=== PATIENT | male | born 1990 | race Caucasian/White ===

== ENCOUNTER 2017-07-20 10:39 | Emergency (ER) | payer MEDICAID ==
[~2017-07-20] VITALS: Ht 177.8 cm; Wt 79.0 kg
[2017-07-20 10:43] VITALS: Ht 177.8 cm; Wt 79.0 kg
[2017-07-20] MEDS ORDERED: ACETAMINOPHEN 500 MG TAB PO STA (11:37)
[2017-07-20] MEDS ORDERED: ONDANSETRON 4 MG INJ IV STA (11:37)
--- NOTE | 2017-07-20 11:42 | ERD ---
ER Documentation Chief Complaint Date/Time DATE: 07/20/17 TIME: 11:40 Chief Complaint pt bib family with c/o cough, fever, aches,vomiting feeling bad x 2 days HPI This is a 26-year-old male who presents the emergency department today with his aunt for complaints of feeling bad for the past 4 days. States he has had intermittent cough he has body aches, fever, nasal congestion and shortness of breath and 2 bouts of vomiting. States he has burning in his esophagus that goes upwards. denies any sick contacts. States he smokes cigarettes. Denies any diarrhea ROS All systems reviewed and are negative except as per history of present illness. Medications Home Meds Active Scripts Guaifenesin-Dextromethorphan* (Robitussin* DM) 100MG/10MG/5ML Syrup, 10 ML PO Q4H Y for COUGH for 7 Days, ML Prov:RYAN MORA PA-C 07/20/17 Ondansetron Hcl* (Zofran*) 4 Mg Tablet, 4 MG PO Q6H for NAUSEA AND/OR VOMITING, #30 TAB Prov:RYAN MORA PA-C 07/20/17 Omeprazole* (Omeprazole*) 20 Mg Capsule., 20 MG PO BID, #20 Prov:RYAN MORA PA-C 07/20/17 Electrolyte,Oral (Pedialyte) 1,000 Ml Solution, 100 ML PO Q6 Y for FEVER, #1000 ML Prov:RYAN MORA PA-C 07/20/17 Acetaminophen* (Tylophen*) 500 Mg Capsule, 1 CAP PO Q6H Y for PAIN AND OR ELEVATED TEMP, #30 CAP Prov:RYAN MORA PA-C 07/20/17 Ibuprofen* (Motrin*) 800 Mg Tab, 800 MG PO Q6, #30 TAB Prov:RYAN MORA PA-C 07/20/17 Allergies Allergies: Coded Allergies: No Known Allergy (Unverified , 07/20/17) Physical Exam Vitals Vital Signs Date Time Temp Pulse Resp B/P Pulse Ox O2 Delivery O2 Flow Rate FiO2 07/20/17 14:12 98.7 119 20 152/83 100 Room Air 07/20/17 10:43 100.2 139 20 163/92 100 Physical Exam Const: NAD Head: Atraumatic Eyes: Normal Conjunctiva ENT: TMs normal. Bilateral clear drainage. Throat mild erythema no exudate Neck: Full range of motion..~ No meningismus. Resp: Clear to auscultation bilaterally Cardio: Regular rate and rhythm, no murmurs Abd: Soft, mild epigastric tenderness non distended. Normal bowel sounds Skin: No petechiae or rashes Back: No midline or flank tenderness Ext: No cyanosis, or edema Neur: Awake and alert Psych: Normal Mood and Affect Results 24 hrs Current Medications Medications (Trade) Dose Ordered Sig/Rasheed Route PRN Reason Start Time Stop Time Status Last Admin Dose Admin Sodium Chloride (NS) 1,000 ml @ 1,000 mls/hr Q1H ONCE IV 07/20/17 12:00 07/20/17 12:59 DC 07/20/17 12:32 Ondansetron HCl (Zofran Inj) 4 mg ONCE STAT IV 07/20/17 11:37 07/20/17 11:40 DC 07/20/17 12:30 Acetaminophen (Tylenol Tab) 500 mg ONCE STAT PO 07/20/17 11:37 07/20/17 11:40 DC 07/20/17 12:29 Famotidine (Pepcid) 20 mg ONCE ONCE PO 07/20/17 12:00 07/20/17 12:01 DC 07/20/17 12:30 Miscellaneous Medication (Gi Cocktail (2)) 40 ml ONCE ONCE PO 07/20/17 13:30 07/20/17 13:31 DC 07/20/17 13:29 DIAGNOSTIC IMAGING REPORT Patient: ARIADNA DEWITT : 1990 Age: 26 Sex: M MR #: [id number] DOS: 07/20/17 0000 Ordering MD: RYAN MORA PA-C Location: [facility] Room/Bed: PROCEDURE: XR Chest PA CLINICAL INDICATION: Cough, short of breath, fever TECHNIQUE: An PA radiograph of the chest was submitted. COMPARISON: None. FINDINGS: Cardiovascular: The cardiovascular silhouette appears unremarkable. Lung Akbar: The lung akbar appear clear with no nodule, alveolar infiltrate, or interstitial prominence evident. Pleural Spaces: There is no pneumothorax or pleural fluid accumulation evident. Osseous Structures: The osseous structures appear intact. Soft Tissues: The soft tissues appear unremarkable. IMPRESSION: Unremarkable PA chest. Physician Godwin Date Time Electronically viewed and signed by Ary Ballesteros Physician on 07/20/2017 12:32 RH/ CC: RYAN MORA PA-C RUN DATE: 07/20/17 [facility] PAGE 1 RUN TIME: [id number] [place] [address] Deangelo Oshea M.D. Infusion Pharmacist VIRAJ#: [id number] Name: ARIADNA DEWITT Age/Sex: 26/M Attend Dr: MARTHA MAZA MD Acct: [id number] MR# : [id number] : 1990 Location: [facility] Admit: 07/20/17 Specimen: [id number] Status: Complete Jair: 07/20/17-1230 Rcvd: 07/20-1242 Source: MARTHA Jaffe Descrip: Procedure Result Microbiology INFLUENZA A & B BY EIA Final INFLU A&B BY EIA INFLUENZA A NEGATIVE (Ref Range Neg) INFLUENZA B NEGATIVE (Ref Range Neg) ................................................................................ ............ Flags: Critical Hi = *H Critical Lo = *L Microbiology Abnormal = * Abnormal Hi = H Abnormal Lo = L Blood Bank Abnormal = * Susceptability Flags: S = Sensitive R = Resistant I = Intermediate END OF REPORT Procedures/MDM This is a 26-year-old male who presents the emergency department today with multiple complaints. Patient had a low-grade temperature of 100.2 here in the emergency department he was tachycardic at 139. He was oxygen saturation 100% however patient was complaining of feeling shortness of breath and therefore I did obtain a chest x-ray as well as influenza swab. Chest x-ray is unremarkable. There is no pleural effusion or pneumothorax. There is no infiltrate. Low suspicion for pneumonia, PE, abscess, pleural effusion. Influenza A and B is negative Symptoms at this time is consistent with influenza-like symptoms. Low suspicion for sepsis, meningitis, pneumonia ,serious acute bacterial infection. Patient was counseled for greater than 3 minutes on smoking cessation. Prior to discharge I asked patient to follow-up with his primary care doctor and he then indicated that he had gone to his primary care doctor this morning was told to come here to the emergency department to get IV fluids. Patient was given IV fluids, Zofran, Pepcid, Tylenol, GI cocktail here in the emergency department and symptoms improved. Fever s improved to 98 and tachycardia decreased to 119. Patient reported that the burning in his esophagus had improved after the GI cocktail and he was asking if he can eat Brazilian food today when he got home. I counseled patient on proper diet for his symptoms. Patient was given a prescription for Tylenol, Motrin, Robitussin, Zofran, omeprazole At this time the patient is stable for discharge and outpatient management. Patient should follow up with their PCP in the next 1-2 days. They may return to the emergency department sooner for any persistent or worsening of symptoms. Patient understood and agreed with the plan. Departure Diagnosis: Primary Impression: Influenza-like symptoms Condition: RYAN Brizuela PA-C Jul 20, 2017 11:42
[2017-07-20] MEDS ORDERED: SOD CHLORIDE 0.9% 1,000 ML IV ONE (12:00)
[2017-07-20] MEDS ORDERED: FAMOTIDINE 20 MG TAB PO ONE (12:00)
--- NOTE | 2017-07-20 12:32 | RADRPT ---
PROCEDURE: XR Chest PA CLINICAL INDICATION: Cough, short of breath, fever TECHNIQUE: An PA radiograph of the chest was submitted. COMPARISON: None. FINDINGS: Cardiovascular: The cardiovascular silhouette appears unremarkable. Lung Garcia: The lung garcia appear clear with no nodule, alveolar infiltrate, or interstitial promi nence evident. Pleural Spaces: There is no pneumothorax or pleural fluid accumulation evident. Osseous Structures: The osseous structures appear intact. Soft Tissues: The soft tissues appear unremarkable. IMPRESSION: Unremarkable PA chest. Physician Godwin Date Time Electronically viewed and signed by Ary Ballesteros Physician on 07/20/2017 12:32 RH/
[2017-07-20] MEDS ORDERED: LIDOCAINE/MYLANTA 40 ML BTL PO ONE (13:30)
[2017-07-20 14:12] VITALS: BP 152/83; PULSE 119; RESP 20; TEMP 98.7
[2017-07-20] MEDS ORDERED: IBUP800T25 PO (14:23)
[2017-07-20] MEDS ORDERED: ACET500C5 PO (14:23)
[2017-07-20] MEDS ORDERED: ELEC100080 PO (14:23)
[2017-07-20] MEDS ORDERED: OMEP20CA16 PO (14:24)
[2017-07-20] MEDS ORDERED: ONDA4TAB8 PO (14:25)
[2017-07-20] MEDS ORDERED: UDROBDM PO (14:26)
== END 2017-07-20 14:39 | disposition home or self-care (01) ==
LOC: FTE 10:39
DX: R05 Cough (principal); R50.9 Fever, unspecified; R00.0 Tachycardia, unspecified; R06.02 Shortness of breath; R10.13 Epigastric pain; R11.10 Vomiting, unspecified
CPT/HCPCS: 71010; 87400; 96374; J2405; J7030; Z7502; Z7610

== ENCOUNTER 2017-07-21 08:02 | Inpatient (IN) | payer MEDICAID ==
[~2017-07-21] VITALS: Ht 177.8 cm; Wt 80.2 kg
[2017-07-21] VITALS (9 sets, daily range): BP systolic 117–152; BP diastolic 61–115; PULSE 94–113; RESP 17–26; TEMP 98.8; Ht 177.8 cm; Wt 80.2 kg
[~2017-07-21 08:02] MED LIST: ACET500C5 PO; ELEC100080 PO; IBUP800T25 PO; OMEP20CA16 PO; ONDA4TAB8 PO; UDROBDM PO
[2017-07-21] MEDS ORDERED: ONDANSETRON 4 MG INJ IV STA (08:41)
[2017-07-21] MEDS ORDERED: SOD CHLORIDE 0.9% 1,000 ML IV STA ×2 (08:41→10:14)
[2017-07-21 09:24] LABS: BASOPHIL # 0.1 10^3/ul (0.0-0.1); BASOPHILS % 0.7 % (0.0-2.0); EOSINOPHILS % 0.1 % (0.0-7.0); HEMATOCRIT 48.7 % (42.0-52.0); HEMOGLOBIN 16.5 g/dl (14.0-18.0); LYMPHOCYTES # 1.7 10^3/ul (0.8-2.9); LYMPHOCYTES % 15.1 % (15.0-51.0); MEAN CORPUSCULAR HEMOGLOBIN 29.6 pg (29.0-33.0); MEAN CORPUSCULAR HGB CONC 33.9 g/dl (32.0-37.0); MEAN CORPUSCULAR VOLUME 87.3 fl (82.0-101.0); MEAN PLATELET VOLUME 9.7 fl (7.4-10.4); MONOCYTE # 1.1 10^3/ul (0.3-0.9); MONOCYTES % 9.7 % (0.0-11.0); NEUTROPHILS % 71.9 % (39.0-77.0); PLATELET COUNT 237 10^3/UL (140-415); RED BLOOD COUNT 5.58 10^6/ul (4.70-6.10); RED CELL DISTRIBUTION WIDTH 12.9 % (11.5-14.5); WHITE BLOOD COUNT 11.2 10^3/ul (4.8-10.8)
[2017-07-21 09:30] LABS: ADD UMIC YES; UR ASCORBIC ACID NEGATIVE (NEGATIVE); UR BILIRUBIN (Dip) NEGATIVE (NEGATIVE); UR BLOOD (Dip) 1+ mg/dL (NEGATIVE); UR CLARITY CLEAR (CLEAR); UR COLOR STRAW (YELLOW); UR GLUCOSE (Dip) 3+ mg/dL (NEGATIVE); UR KETONES (Dip) 2+ mg/dL (NEGATIVE); UR LEUKOCYTE ESTERASE (Dip) NEGATIVE Leu/ul (NEGATIVE); UR MUCUS FEW /HPF (NONE SEEN); UR NITRITE (Dip) NEGATIVE (NEGATIVE); UR RBC 2 /HPF (0-5); UR TOTAL PROTEIN (Dip) 2+ mg/dl (NEGATIVE); UR UROBILINOGEN (Dip) NEGATIVE (NEGATIVE)
--- NOTE | 2017-07-21 09:34 | ERA ---
ER Documentation Chief Complaint Date/Time DATE: 07/21/17 TIME: 09:32 Chief Complaint seen here yesterday, dx flu, today vomiting x 3 HPI 26-year-old male returning to the emergency department with a chief complaint of nausea, vomiting, general malaise. Also complains of diminishing cough over the past couple days. Moderate upper abdominal pain 3 days. Patient states that the cough is mild. States that he feels dehydrated. Denies headache, meningismus, diarrhea, constipation, dysuria, recreational drug use, alcohol abuse, similar symptoms in past. No previous surgical history. Patient has no other complaints and describes no other associated manifestations. ROS All systems reviewed and are negative except as per history of present illness. Medications Home Meds Active Scripts Guaifenesin-Dextromethorphan* (Robitussin* DM) 100MG/10MG/5ML Syrup, 10 ML PO Q4H Y for COUGH for 7 Days, ML Prov:RYAN MORA PA-C 07/20/17 Ondansetron Hcl* (Zofran*) 4 Mg Tablet, 4 MG PO Q6H for NAUSEA AND/OR VOMITING, #30 TAB Prov:RYAN MORA PA-C 07/20/17 Omeprazole* (Omeprazole*) 20 Mg Capsule.dr, 20 MG PO BID, #20 Prov:RYAN MORA PA-C 07/20/17 Electrolyte,Oral (Pedialyte) 1,000 Ml Solution, 100 ML PO Q6 Y for FEVER, #1000 ML Prov:RYAN MORA PA-C 07/20/17 Acetaminophen* (Tylophen*) 500 Mg Capsule, 1 CAP PO Q6H Y for PAIN AND OR ELEVATED TEMP, #30 CAP Prov:RYAN MORA PA-C 07/20/17 Ibuprofen* (Motrin*) 800 Mg Tab, 800 MG PO Q6, #30 TAB Prov:RYAN MORA PA-C 07/20/17 Allergies Allergies: Coded Allergies: No Known Allergy (Unverified , 07/21/17) PMhx/Soc Medical and Surgical Hx: pt denies Medical Hx, pt denies Surgical Hx History of Surgery: No Anesthesia Reaction: No Hx Neurological Disorder: No Hx Respiratory Disorders: No Hx Cardiac Disorders: No Hx Psychiatric Problems: No Hx Miscellaneous Medical Probl: No Hx Alcohol Use: No Hx Substance Use: No Hx Tobacco Use: No Smoking Status: Never smoker Physical Exam Vitals Vital Signs Date Time Temp Pulse Resp B/P Pulse Ox O2 Delivery O2 Flow Rate FiO2 07/21/17 08:09 98.8 118 20 137/83 99 Physical Exam Const: [] Head: Atraumatic Eyes: Normal Conjunctiva ENT: Normal External Ears, Nose and Mouth. Neck: Full range of motion..~ No meningismus. Resp: Clear to auscultation bilaterally Cardio: Regular rate and rhythm, no murmurs Abd: Soft. No guarding. Mild to moderate tenderness of the epigastric region. Negative Elkins sign. No McBurney's point tenderness. Negative psoas , and obturator signs. No rebound tenderness. Skin: No petechiae or rashes Back: No midline or flank tenderness Ext: No cyanosis, or edema Neur: Awake and alert Psych: Normal Mood and Affect Result Diagram: 07/21/17 0900 07/21/17 0900 Results 24 hrs Laboratory Tests Test 07/21/17 09:00 White Blood Count 11.210^3/ul Red Blood Count 5.5810^6/ul Hemoglobin 16.5g/dl Hematocrit 48.7% Mean Corpuscular Volume 87.3fl Mean Corpuscular Hemoglobin 29.6pg Mean Corpuscular Hemoglobin Concent 33.9g/dl Red Cell Distribution Width 12.9% Platelet Count 36398^3/UL Mean Platelet Volume 9.7fl Neutrophils % 71.9% Lymphocytes % 15.1% Monocytes % 9.7% Eosinophils % 0.1% Basophils % 0.7% Nucleated Red Blood Cells % 0.0/100WBC Neutrophils # 8.010^3/ul Lymphocytes # 1.710^3/ul Monocytes # 1.110^3/ul Eosinophils # 0.010^3/ul Basophils # 0.110^3/ul Nucleated Red Blood Cells # 0.010^3/ul Urine Color STRAW Urine Clarity CLEAR Urine pH 5.0 Urine Specific [place] 1.020 Urine Ketones 2+mg/dL Urine Nitrite NEGATIVEmg/dL Urine Bilirubin NEGATIVEmg/dL Urine Urobilinogen NEGATIVEmg/dL Urine Leukocyte Esterase NEGATIVELeu/ul Urine Microscopic RBC 2/HPF Urine Microscopic WBC 1/HPF Urine Mucus FEW/HPF Urine Hemoglobin 1+mg/dL Urine Glucose 3+mg/dL Urine Total Protein 2+mg/dl Sodium Level 134mmol/L Potassium Level 3.6mmol/L Chloride Level 105mmol/L Carbon Dioxide Level 7mmol/L Anion Gap 26 Blood Urea Nitrogen 11mg/dl Creatinine 0.96mg/dl Glucose Level 324mg/dl Calcium Level 9.2mg/dl Total Bilirubin 0.2mg/dl Direct Bilirubin 0.00mg/dl Indirect Bilirubin 0.2mg/dl Aspartate Amino Transf (AST/SGOT) 18IU/L Alanine Aminotransferase (ALT/SGPT) 34IU/L Alkaline Phosphatase 155IU/L Total Protein 8.2g/dl Albumin 4.5g/dl Globulin 3.70g/dl Albumin/Globulin Ratio 1.21 Lipase 4790U/L Current Medications Medications (Trade) Dose Ordered Sig/Rasheed Route PRN Reason Start Time Stop Time Status Last Admin Dose Admin Sodium Chloride (NS) 1,000 ml @ 1,000 mls/hr Q1H STAT IV 07/21/17 08:41 07/21/17 09:40 DC 07/21/17 09:14 Ondansetron HCl (Zofran Inj) 4 mg ONCE STAT IV 07/21/17 08:41 07/21/17 08:43 DC 07/21/17 09:14 OLIVERIO PALACIOS PA-C Jul 21, 2017 09:34
[2017-07-21 09:48] LABS: ALBUMIN 4.5 g/dl (3.3-4.9); ALBUMIN/GLOBULIN RATIO 1.21; BILIRUBIN,INDIRECT 0.2 mg/dl (0-1.1); BILIRUBIN,TOTAL 0.2 mg/dl (0.2-1.3); CALCIUM 9.2 mg/dl (8.4-10.2); CREATININE 0.96 mg/dl (0.61-1.24); POTASSIUM 3.6 mmol/L (3.5-5.1); TOTAL PROTEIN 8.2 g/dl (6.1-8.1)
[2017-07-21] MEDS ORDERED: INSULIN HUMAN REGULAR 100 UNIT in SOD CHLORIDE 0.9% 99 ML IV STA (10:14)
[2017-07-21 10:48] LABS: AADO2 Arterial 7.7 mmHg (7.0-24.0); Allen Test ACCEPTAB; Arterial Base Excess -24.7 mmol/L (-3.0-3); Arterial COHb 0.3 % (0.0-3.0); Arterial Fraction of Oxyhgb 97.6 % (93.0-99.0); Arterial HCO3 3.9 mmol/L (22.0-26.0); Arterial MetHb 0.3 % (0.0-1.5); Arterial Total Hemglobin 16.5 g/dl (12.0-18.0); MODE ROOM AIR
[2017-07-21 14:01] LABS: INR 1.14; MAGNESIUM 2.6 mg/dl (1.7-2.5); PARTIAL THROMBOPLASTIN TIME 26.1 Sec (25.0-35.0); PHOSPHORUS 1.6 mg/dl (2.5-4.9); PROTIME 14.6 Sec (12.2-14.2); PT RATIO 1.1
[2017-07-21] MEDS ORDERED: SOD CHLORIDE 0.9% 1,000 ML IV SCH ×2 (14:05)
[2017-07-21] MEDS ORDERED: INSULIN HUMAN REGULAR 100 UNIT in SOD CHLORIDE 0.9% 99 ML IV SCH (14:30)
[2017-07-21] MEDS ORDERED: NACL 0.9% 3 ML SYG IV SCH (14:30)
[2017-07-21] MEDS ORDERED: DEXTROSE 50% 50 ML SYRINGE IV PRN ×2 (14:30)
[2017-07-21] MEDS ORDERED: LORAZEPAM 2 MG INJ IV PRN (14:30)
[2017-07-21] MEDS ORDERED: HYDROCODONE/APAP (5/325) TAB PO PRN (14:30)
[2017-07-21] MEDS ORDERED: GUAIFENESIN/DM 5ML CUP PO PRN (14:30)
[2017-07-21] MEDS ORDERED: morphine 2 MG INJ IV PRN (14:30)
[2017-07-21] MEDS ORDERED: NA PHOSPHATE/BIPHOS 133 ML ENEMA PR PRN (14:30)
[2017-07-21] MEDS ORDERED: ALBUTEROL/IPRATROPIUM (NEB) 3 ML AMP HHN PRN (14:30)
[2017-07-21] MEDS ORDERED: ACETAMINOPHEN 325 MG TAB PO PRN (14:30)
[2017-07-21] MEDS ORDERED: NITROGLYCERIN (SL) 0.4 MG TAB SL PRN (14:30)
[2017-07-21] MEDS ORDERED: hydrALAzine 20 MG INJ IV PRN (14:30)
[2017-07-21] MEDS ORDERED: LACTATED RINGER'S 1,000 ML IV SCH (15:05)
[2017-07-21 15:15] LABS: CALCIUM 8.5 mg/dl (8.4-10.2); CREATININE 0.9 mg/dl (0.61-1.24); POTASSIUM 3.2 mmol/L (3.5-5.1)
[2017-07-21] MEDS ORDERED: POTASSIUM CHLORIDE 10 MEQ in SOD CHLORIDE 0.9% 1,000 ML IV SCH (16:05)
[2017-07-21] MEDS: ACCU-CHEK XX SCH ×8 (16:25→23:33)
[2017-07-21] MEDS ORDERED: PANTOPRAZOLE (EC) 40 MG TAB PO ONE (17:00)
[2017-07-21] MEDS: ONDANSETRON 4 MG INJ IV PRN (17:02)
[2017-07-21 17:31] LABS: CALCIUM 8.4 mg/dl (8.4-10.2); CREATININE 0.84 mg/dl (0.61-1.24); POTASSIUM 3.3 mmol/L (3.5-5.1)
[2017-07-21] MEDS ORDERED: POTASSIUM PHOSPHATE 40 MEQ in SOD CHLORIDE 0.9% 250 ML IVPB ONE (18:00)
--- NOTE | 2017-07-21 19:39 | HP ---
DATE OF ADMISSION: 07/21/2017 CHIEF COMPLAINT: Abdominal pain, nausea, vomiting. HISTORY OF PRESENT ILLNESS: A 26-year-old male with no significant past medical history who presents with abdominal pain, nausea, vomiting, symptoms have been going on for the last few days. He has also been having increased urinary frequency and generalized weakness as well. His vomiting is nonbilious, nonbloody, also abdominal pain as well. He has also had a dry cough as well, also has subjective fevers but denies chills. No diarrhea or constipation. No arthralgias or myalgias. When he came in today, he was found with elevated blood sugars in the 3- 400 range along with an elevated anion gap of 26, signs of DKA and was started on fluids and insulin in the ER. Patient denies any prior history of diabetes, says he has never had these symptoms before. PAST MEDICAL HISTORY: As above. ALLERGIES: NO KNOWN DRUG ALLERGIES. HOME MEDICATIONS: None. PAST SURGICAL HISTORY: He had wrist surgery in the past. FAMILY HISTORY: Mother had diabetes. Father had heart problems and alcohol abuse. SOCIAL HISTORY: He smokes 9-10 cigarettes per day for the last six years. PHYSICAL EXAMINATION: VITAL SIGNS: T-max 98.8, pulse 109-119, respirations 19-24, blood pressure is 134/83, satting at 100% room air. GENERAL: Patient is lying in bed, appears lethargic but answers questions appropriately, in mild distress. HEENT: Pupils equal, round, react to light. Extraocular muscles intact. NECK: Supple. No thyromegaly. LUNGS: Clear to auscultation bilaterally. CARDIOVASCULAR: S1, S2 heard. No rubs or gallops. ABDOMEN: Soft, nontender, nondistended. Normal bowel sounds. No rebound or guarding. MUSCULOSKELETAL: No lower extremity bilaterally. NEUROLOGIC: No focal deficits. LABS: WBC 11.2, hemoglobin 16.5, hematocrit 48.7, platelets of 237,000. Initial sodium was 134, potassium 3.6, chloride 105, CO2 7, anion gap 26, BUN 11, creatinine 0.96, glucose 324. His A1c is 11, phosphorus 1.6, mag is 2.6, LFTs are essentially normal except his alk phos is 155, total protein is 8.2, amylase was 553, lipase is 4790, and his UA showed 2+ ketones. Chest x- ray showed unremarkable. DISCUSSION AND DECISION-MAKING: A 26-year-old male coming with abdominal pain, nausea, vomiting, and increased urinary frequency, symptoms and signs of diabetic ketoacidosis, also with signs of pancreatitis. 1. Diabetic ketoacidosis. Admit the patient to intensive care unit, aggressive IV fluid hydration, aggressive IV insulin management. Follow diabetic ketoacidosis protocol. Replete the electrolytes as well. A1c is 11. Will get tobacco prevention health educator as well. Consider endocrinology consult as well. 2. Pancreatitis, unclear source, lipase was 4700 on admission. Keep the patient n.p.o. for now, recheck lipase in the morning. Antiemetic medications and pain control medications as well. 3. Gastroenterology prophylaxis. Proton pump inhibitor. 4. Deep venous thrombosis prophylaxis. Heparin subcutaneously. Dictated By: Jono Vieira MD /javi/zac /Document#: [id number]
[2017-07-21] MEDS: D5W-0.45 NACL + KCL 40 MEQ 1,000 ML IV SCH (20:02)
[2017-07-21] MEDS: HEPARIN 5,000 UNIT/0.5 ML VIAL SC SCH (21:26)
[2017-07-21 23:54] LABS: CALCIUM 8.5 mg/dl (8.4-10.2); CREATININE 0.8 mg/dl (0.61-1.24)
[2017-07-22] VITALS (20 sets, daily range): BP systolic 112–141; BP diastolic 58–92; PULSE 84–106; RESP 14–23
[2017-07-22] MEDS: ACCU-CHEK XX SCH ×9 (00:36→08:41)
[2017-07-22] MEDS: ONDANSETRON 4 MG INJ IV PRN (04:13)
[2017-07-22] MEDS: D5W-0.45 NACL + KCL 40 MEQ 1,000 ML IV SCH (04:16)
[2017-07-22] MEDS: POTASSIUM CHLORIDE 50 ML IVPB PRN ×4 (04:29→07:30)
[2017-07-22] MEDS: PANTOPRAZOLE (EC) 40 MG TAB PO SCH (05:17)
[2017-07-22 05:26] LABS: BASOPHILS % 0.3 % (0.0-2.0); EOSINOPHILS # 0.1 10^3/ul (0.0-0.5); EOSINOPHILS % 1.5 % (0.0-7.0); HEMATOCRIT 40.4 % (42.0-52.0); HEMOGLOBIN 14.4 g/dl (14.0-18.0); LYMPHOCYTES # 1.2 10^3/ul (0.8-2.9); LYMPHOCYTES % 19.9 % (15.0-51.0); MEAN CORPUSCULAR HEMOGLOBIN 30.4 pg (29.0-33.0); MEAN CORPUSCULAR HGB CONC 35.6 g/dl (32.0-37.0); MEAN CORPUSCULAR VOLUME 85.2 fl (82.0-101.0); MEAN PLATELET VOLUME 9.8 fl (7.4-10.4); MONOCYTE # 0.9 10^3/ul (0.3-0.9); MONOCYTES % 13.9 % (0.0-11.0); NEUTROPHIL # 3.9 10^3/ul (1.6-7.5); NEUTROPHILS % 63.3 % (39.0-77.0); PLATELET COUNT 162 10^3/UL (140-415); RED BLOOD COUNT 4.74 10^6/ul (4.70-6.10); RED CELL DISTRIBUTION WIDTH 12.6 % (11.5-14.5); WHITE BLOOD COUNT 6.2 10^3/ul (4.8-10.8)
[2017-07-22 05:45] LABS: CALCIUM 8.5 mg/dl (8.4-10.2); CREATININE 0.73 mg/dl (0.61-1.24); PHOSPHORUS 0.9 mg/dl (2.5-4.9)
[2017-07-22] MEDS ORDERED: SOD CHLORIDE IVPB ONE (06:00)
[2017-07-22] MEDS ORDERED: POTASSIUM PHOSPHATE IVPB ONE (06:00)
[2017-07-22 06:14] LABS: CHOL/HDL RATIO 4.2 RATIO
[2017-07-22 06:46] LABS: THYROID STIMULATING HORMONE 0.796 MIU/L (0.465-4.680)
--- NOTE | 2017-07-22 07:49 | ERA ---
ER Documentation Chief Complaint Date/Time DATE: 07/22/17 TIME: 07:34 Chief Complaint seen here yesterday, dx flu, today vomiting x 3 HPI This is a very pleasant 26-year-old previously healthy male that presents to the emergency department complaining of generalized myalgias nausea and increased tiredness over the past 7 days. The patient indicates that over the past 3 days his symptoms have significantly worsened where he has had multiple episodes of nonbloody nonbilious emesis throughout the day. He has had no diarrhea or constipation. He complains of abdominal cramping but more prominent in the epigastric region. He states he went to the emergency department yesterday and diagnosed with an upper respiratory infection. He also indicates he had a nonproductive cough. The patient states he has had polyuria and polydipsia. He denies a headache or changes in vision. He denies any neck pain. He denies any history of alcohol abuse ROS All systems reviewed and are negative except as per history of present illness. Medications Home Meds Discontinued Scripts Guaifenesin-Dextromethorphan* (Robitussin* DM) 100MG/10MG/5ML Syrup, 10 ML PO Q4H Y for COUGH for 7 Days, ML Prov:RYAN MORA PA-C 07/20/17 Ondansetron Hcl* (Zofran*) 4 Mg Tablet, 4 MG PO Q6H for NAUSEA AND/OR VOMITING, #30 TAB Prov:RYAN MORA PA-C 07/20/17 Omeprazole* (Omeprazole*) 20 Mg Capsule., 20 MG PO BID, #20 Prov:RYAN MORA PA-C 07/20/17 Electrolyte,Oral (Pedialyte) 1,000 Ml Solution, 100 ML PO Q6 Y for FEVER, #1000 ML Prov:RYAN MORA PA-C 07/20/17 Acetaminophen* (Tylophen*) 500 Mg Capsule, 1 CAP PO Q6H Y for PAIN AND OR ELEVATED TEMP, #30 CAP Prov:RYAN MOAR PA-C 07/20/17 Ibuprofen* (Motrin*) 800 Mg Tab, 800 MG PO Q6, #30 TAB Prov:RYAN MORA PA-C 07/20/17 Allergies Allergies: Coded Allergies: No Known Allergy (Unverified , 07/21/17) PMhx/Soc Medical and Surgical Hx: pt denies Medical Hx, pt denies Surgical Hx Anesthesia Reaction: No Hx Neurological Disorder: No Hx Respiratory Disorders: No Hx Cardiac Disorders: No Hx Psychiatric Problems: No Hx Miscellaneous Medical Probl: No Hx Alcohol Use: Yes (2-3 TIMES/WEEK ~2 CUPS HENNESEY) Hx Substance Use: No Hx Tobacco Use: Yes Smoking Status: Current every day smoker Physical Exam Vitals Vital Signs Date Time Temp Pulse Resp B/P Pulse Ox O2 Delivery O2 Flow Rate FiO2 07/21/17 08:09 98.8 118 20 137/83 99 Physical Exam Constitutional:Well-developed. Drowsy but easily arousable. HEENT:Normocephalic. Atraumatic.Pupils were equal round reactive to light. Very dry mucous membranes.No tonsillar exudates. Neck: No nuchal rigidity. No lymphadenopathy. No posterior cervical spine tenderness or step-offs. Respiratory: [place] respirations with tachypnea but not using accessory muscles of respiration.Lungs were clear to auscultation bilaterally. No rhonchi. No rales. No wheezing. Odor of ketones on breath Cardiovascular: Regular rate regular rhythm.No murmurs. No rubs were appreciated.S1, S2 normal. Distal pulses are palpable 2+ bilaterally. GI: Abdomen was soft. Fuse abdominal tenderness. Non Distended. No pulsatile abdominal masses or bruits. No rebound. No guarding. Bowel sounds were present and normal. Muscle skeletal: Full range of motion of both the upper and lower extremities bilaterally.Normal muscle tone.No assymetrical calf tenderness or swelling. Skin: No petechia, no purpura. No lesions on the palms or the soles of the feet. No maculopapular rash. NEURO: Patient was alert, awake, orientated x3.No facial droop. Gait observed and normal with no ataxia. Result Diagram: 07/22/17 0505 07/22/17 0506 Results 24 hrs Laboratory Tests Test 07/21/17 09:00 07/21/17 10:14 07/21/17 11:55 White Blood Count 11.210^3/ul Red Blood Count 5.5810^6/ul Hemoglobin 16.5g/dl Hematocrit 48.7% Mean Corpuscular Volume 87.3fl Mean Corpuscular Hemoglobin 29.6pg Mean Corpuscular Hemoglobin Concent 33.9g/dl Red Cell Distribution Width 12.9% Platelet Count 35720^3/UL Mean Platelet Volume 9.7fl Neutrophils % 71.9% Lymphocytes % 15.1% Monocytes % 9.7% Eosinophils % 0.1% Basophils % 0.7% Nucleated Red Blood Cells % 0.0/100WBC Neutrophils # 8.010^3/ul Lymphocytes # 1.710^3/ul Monocytes # 1.110^3/ul Eosinophils # 0.010^3/ul Basophils # 0.110^3/ul Nucleated Red Blood Cells # 0.010^3/ul Urine Color STRAW Urine Clarity CLEAR Urine pH 5.0 Urine Specific [place] 1.020 Urine Ketones 2+mg/dL Urine Nitrite NEGATIVEmg/dL Urine Bilirubin NEGATIVEmg/dL Urine Urobilinogen NEGATIVEmg/dL Urine Leukocyte Esterase NEGATIVELeu/ul Urine Microscopic RBC 2/HPF Urine Microscopic WBC 1/HPF Urine Mucus FEW/HPF Urine Hemoglobin 1+mg/dL Urine Glucose 3+mg/dL Urine Total Protein 2+mg/dl Sodium Level 134mmol/L Potassium Level 3.6mmol/L Chloride Level 105mmol/L Carbon Dioxide Level 7mmol/L Anion Gap 26 Blood Urea Nitrogen 11mg/dl Creatinine 0.96mg/dl Glucose Level 324mg/dl Calcium Level 9.2mg/dl Total Bilirubin 0.2mg/dl Direct Bilirubin 0.00mg/dl Indirect Bilirubin 0.2mg/dl Aspartate Amino Transf (AST/SGOT) 18IU/L Alanine Aminotransferase (ALT/SGPT) 34IU/L Alkaline Phosphatase 155IU/L Total Protein 8.2g/dl Albumin 4.5g/dl Globulin 3.70g/dl Albumin/Globulin Ratio 1.21 Lipase 4790U/L Blood Gas Specimen Source Blood arterial Arterial Blood Date Drawn 07/21/2017 10:40:59 AM Arterial Blood pH (Temp corrected) 7.042 Arterial Blood pCO2 (Temp correct) 14.6mmhg Arterial Blood pO2 (Temp corrected) 124.5mmHG Arterial Blood HCO3 3.9mmol/L Arterial Blood Base Excess -24.7mmol/L Arterial Blood Oxygen Saturation 98.2mmHG Jey Test ACCEPTAB Arterial Blood Gas Puncture Site Right Radial Arterial Blood Carboxyhemoglobin 0.3% Arterial Blood Methemoglobin 0.3% Blood Gas A-a O2 Differential 7.7mmHg Oxyhemoglobin Percent 97.6% Total Hemoglobin 16.5g/dl Blood Gas Temperature 37.0C Blood Gas Modality ROOM AIR FiO2 21.0% Blood Gas Critical Value Read Back DR PIERRE Blood Gas Notified Whom JLD Blood Gas Notified Time 07/21/2017 10:48:43 AM Bedside Glucose 303mg/dL Current Medications Medications (Trade) Dose Ordered Sig/Rasheed Route PRN Reason Start Time Stop Time Status Last Admin Dose Admin Sodium Chloride (NS) 1,000 ml @ 1,000 mls/hr Q1H STAT IV 07/21/17 08:41 07/21/17 09:40 DC 07/21/17 09:14 Ondansetron HCl 4 mg 4 mg ONCE STAT IV 07/21/17 08:41 07/21/17 08:43 DC 07/21/17 09:14 Sodium Chloride 1,000 ml @ 1,000 mls/hr Q1H STAT IV 07/21/17 10:14 07/21/17 11:13 DC 07/21/17 11:47 Insulin Human Regular/Sodium Chloride (Novolin-R/NS) 100 ml @ 0 mls/hr TITRATE STAT IV 07/21/17 10:14 07/21/17 10:20 DC 07/21/17 11:58 Procedures/MDM This patient presented to the emergency department with generalized myalgias and physical exam findings suggestive of severe dehydration. At this time IV access was established by nursing staff and ancillary laboratory work was obtained. The patient received a fluid bolus. The patient presented to the emergency department with severe electrolyte abnormalities. The patient had an anion gap acidosis and my differential diagnosis included but was not limited to alcoholic ketoacidosis, carbon monoxide, aspirin toxicity, methanol toxicity, diabetic ketoacidosis, lactic acidosis, iron toxicity, starvation and sepsis. Given the patient's symptoms with diagnostic criteria of acidosis with a pH of 7.042 with ketonemia, low serum bicarbonate of 3.9 and elevated glucose of 340, I did feel the patient's symptoms were likely result of new onset diabetic ketoacidosis. The patient had ketonuria and serum ketones are currently pending at this time. In order to correct the anion gap the patient was started on an insulin drip after receiving fluid boluses to restore intravascular volume. The patient had no fluctuation in his mental status severe headache or elevated serum osmolarity which was calculated at 289 in the normal range being between 285 and 300 mOsm per liter. Patient will be admitted to the ICU in serious condition under the care of the hospitalists for resolution of the patient's anion gap acidosis. Patient lipase was also elevated which was concerning for acute pancreatitis and therefore the patient was made n.p.o. the patient had very minimal abdominal tenderness and I did not feel the patient had complications of a pancreatic pseudocyst or abscess and therefore at this time I did not obtain a CT scan of the abdomen. The patient had no cardiac instability and therefore bicarbonate was not given due to the complications which include hypokalemia, alkalosis, cerebral acidosis and edema. Critical Care: Time: 65 minutes Treatments/Evaluations: Close monitoring and treatment of unstable vital signs, cardiorespiratory, and neurologic status, while maintaining tight balance of fluid, respiratory, and cardiac interventions. Time does not include performing any of the above billable procedures. Departure Diagnosis: Primary Impression: Diabetic ketoacidosis Qualified Code: E13.10 - Diabetic ketoacidosis without coma associated with other specified diabetes mellitus Additional Impression: Acute pancreatitis Qualified Code: K85.90 - Acute pancreatitis without infection or necrosis, unspecified pancreatitis type Condition: Serious TIMO GRAMAJO Jul 22, 2017 07:48 Qualified Code: K85.90 - Acute pancreatitis without infection or necrosis, unspecified pancreatitis type Condition: Serious TIMO GRAMAJO Jul 22, 2017 07:48
[2017-07-22] MEDS: HEPARIN 5,000 UNIT/0.5 ML VIAL SC SCH (08:11)
[2017-07-22] MEDS ORDERED: SOD CHLORIDE 0.9% 1,000 ML IV SCH (09:30)
--- NOTE | 2017-07-22 09:43 | PN ---
Date/Time of Note Date/Time of Note DATE: 07/22/17 TIME: 09:38 Assessment/Plan VTE Prophylaxis VTE Prophylaxis Intervention: heparin Lines/Catheters IV [facility]from [facility] Peripheral IV Urinary Cath still in place: No Assessment/Plan Chief Complaint/Hosp Course Assessment and plan: A 26-year-old male coming with abdominal pain, nausea, vomiting, and increased urinary frequency, symptoms and signs of diabetic ketoacidosis, also with signs of pancreatitis. 1. Diabetic ketoacidosis -gap has closed now. - Continue aggressive IV fluid hydration, will switch to subcu insulin follow diabetic ketoacidosis protocol. - Replete the electrolytes as well. A1c is 11. -Aloe up endocrinology and radiagraph operator recommendations as well. 2. Pancreatitis - unclear source, lipase was 4700 on admission, down to 2300 yesterday evening. Keep the patient n.p.o. for now, but recheck lipase now. Antiemetic medications and pain control medications as well. 3. Gastroenterology prophylaxis. Proton pump inhibitor. 4. Deep venous thrombosis prophylaxis. Heparin subcutaneously. Critical care time spent on patient care today equals 50 minutes. Problems: Subjective 24 Hr Interval Summary Free Text/Dictation No acute events overnight. About to be taken off insulin drip. Exam/Review of Systems Vital Signs Vitals Vital Signs Date Time Temp Pulse Resp B/P Pulse Ox O2 Delivery O2 Flow Rate FiO2 07/22/17 06:00 92 15 117/79 99 Room Air 07/22/17 04:00 98.4 Intake and Output 07/21/17 07/21/17 07/22/17 15:00 23:00 07:00 Intake Total 1685.319 ml 998 ml Output Total 2300 ml 800 ml Balance -614.681 ml 198 ml Exam GENERAL: Lying in bed, answers questions appropriately HEENT: Pupils equal, round, react to light. Extraocular muscles intact. NECK: Supple. No thyromegaly. LUNGS: Clear to auscultation bilaterally. CARDIOVASCULAR: S1, S2 heard. No rubs or gallops. ABDOMEN: Soft, nontender, nondistended. Normal bowel sounds. No rebound or guarding. MUSCULOSKELETAL: No lower extremity bilaterally. NEUROLOGIC: No focal deficits. Results Result Diagram: 07/22/17 0505 07/22/17 0506 Results 24 hrs Laboratory Tests Test 07/21/17 10:14 07/21/17 11:55 07/21/17 13:20 07/21/17 13:30 Blood Gas Specimen Source Blood arterial Arterial Blood Date Drawn 07/21/2017 10:40:59 AM Arterial Blood pH (Temp corrected) 7.042 *L Arterial Blood pCO2 (Temp correct) 14.6 L Arterial Blood pO2 (Temp corrected) 124.5 H Arterial Blood HCO3 3.9 *L Arterial Blood Base Excess -24.7 L Arterial Blood Oxygen Saturation 98.2 H Jey Test ACCEPTAB Arterial Blood Gas Puncture Site Right Radial Arterial Blood Carboxyhemoglobin 0.3 Arterial Blood Methemoglobin 0.3 Blood Gas A-a O2 Differential 7.7 Oxyhemoglobin Percent 97.6 Total Hemoglobin 16.5 Blood Gas Temperature 37.0 Blood Gas Modality ROOM AIR FiO2 21.0 Blood Gas Critical Value Read Back DR PIERRE Blood Gas Notified Whom ANNETTAD Blood Gas Notified Time 07/21/2017 10:48:43 AM Bedside Glucose 303 H 220 Prothrombin Time 14.6 H Prothrombin Time Ratio 1.1 INR International Normalized Ratio 1.14 Activated Partial Thromboplast Time 26.1 Sodium Level 137 Potassium Level 3.2 L Chloride Level 112 H Carbon Dioxide Level 7 *L Anion Gap 21 H Blood Urea Nitrogen 10 Creatinine 0.90 Glucose Level 222 #H Hemoglobin A1c 11.0 H Calcium Level 8.5 Phosphorus Level 1.6 L Magnesium Level 2.6 H Amylase Level 553 H Free Thyroxine 1.01 Test 07/21/17 13:56 07/21/17 14:59 07/21/17 16:03 07/21/17 16:26 Bedside Glucose 188 167 148 132 Test 07/21/17 16:43 07/21/17 16:45 07/21/17 17:23 07/21/17 18:08 Sodium Level 138 Potassium Level 3.3 L Chloride Level 114 H Carbon Dioxide Level 10 L Anion Gap 17 H Blood Urea Nitrogen 10 Creatinine 0.84 Glucose Level 131 # Calcium Level 8.4 Lipase 2362 H Bedside Glucose 119 111 Test 07/21/17 19:24 07/21/17 20:29 07/21/17 21:21 07/21/17 22:34 Bedside Glucose 119 134 112 140 Test 07/21/17 23:15 07/21/17 23:30 07/22/17 00:35 07/22/17 01:36 Sodium Level 137 Potassium Level 3.0 L Chloride Level 115 H Carbon Dioxide Level 13 L Anion Gap 12 Blood Urea Nitrogen 8 Creatinine 0.80 Glucose Level 105 Calcium Level 8.5 Bedside Glucose 103 106 99 Test 07/22/17 02:35 07/22/17 03:26 07/22/17 04:20 07/22/17 05:05 Bedside Glucose 109 137 128 White Blood Count 6.2 # Red Blood Count 4.74 Hemoglobin 14.4 Hematocrit 40.4 L Mean Corpuscular Volume 85.2 Mean Corpuscular Hemoglobin 30.4 Mean Corpuscular Hemoglobin Concent 35.6 Red Cell Distribution Width 12.6 Platelet Count 162 # Mean Platelet Volume 9.8 Neutrophils % 63.3 Lymphocytes % 19.9 Monocytes % 13.9 H Eosinophils % 1.5 Basophils % 0.3 Nucleated Red Blood Cells % 0.0 Neutrophils # 3.9 Lymphocytes # 1.2 Monocytes # 0.9 Eosinophils # 0.1 Basophils # 0.0 Nucleated Red Blood Cells # 0.0 Hemoglobin A1c 10.6 H Triglycerides Level 127 Cholesterol Level 152 LDL Cholesterol, Calculated 91 HDL Cholesterol 36 Cholesterol/HDL Ratio 4.2 Thyroid Stimulating Hormone (TSH) 0.796 Test 07/22/17 05:06 07/22/17 05:19 07/22/17 06:33 07/22/17 07:29 Sodium Level 139 Potassium Level 3.0 L Chloride Level 116 H Carbon Dioxide Level 12 L Anion Gap 14 Blood Urea Nitrogen 8 Creatinine 0.73 Glucose Level 151 Calcium Level 8.5 Phosphorus Level 0.9 L Bedside Glucose 167 216 210 Test 07/22/17 08:37 Bedside Glucose 212 Medications Medications Current Medications Ondansetron HCl (Zofran Inj) 4 mg Q6H PRN IV NAUSEA AND/OR VOMITING Last administered on 07/22/17t 04:13; Admin Dose 4 MG; Start 07/21/17 at 14:30 Acetaminophen (Tylenol Tab) 650 mg Q6H PRN PO PAIN LEVEL 1-3 OR FEVER; Start at 14:30 Acetaminophen/ Hydrocodone Bitart ([place] (5/325)) 1 tab Q6H PRN PO MODERATE PAIN LEVEL 4-6; Start 07/21/17 at 14:30 Morphine Sulfate (morphine) 2 mg Q4H PRN IV SEVERE PAIN LEVEL 7-10; Start 07/21 at 14:30 Docusate Sodium (Colace) 100 mg Q12H PRN PO CONSTIPATION; Start 07/21/17 at 14: 30 Magnesium Hydroxide (Milk Of Mag) 30 ml DAILY PRN PO CONSTIPATION; Start at 14:30 Sodium Biphosphate/ Sodium Phosphate (Fleet Enema) 133 ml DAILY PRN AL CONSTIPATION; Start 07/21/17 at 14:30 Pantoprazole (Protonix Tab) 40 mg DAILY@06 PO Last administered on 07/22/17 05 :17; Admin Dose 40 MG; Start 07/22/17 at 06:00 Heparin Sodium (Porcine) (Heparin (5000 Units/0.5 ml)) 5,000 unit Q12 SC Last administered on 07/22/17 08:11; Admin Dose 5,000 UNIT; Start 07/21/17 at 21:00 Lorazepam (Ativan) 0.5 mg Q6H PRN IV ANXIETY; Start 07/21/17 at 14:30 Hydralazine HCl (Apresoline) 10 mg Q6H PRN IV ELEVATED BLOOD PRESSURE; Start at 14:30 Nitroglycerin (Nitroglycerin (Sl Tab) 0.4 Mg) 1 tab Q5M PRN SL ANGINA; Start at 14:30 Dextrose (D50w Syringe) 50 ml Q15M PRN IV For BS 50 or less; Start 07/21/17 at 14:30 Dextrose (D50w Syringe) 25 ml Q15M PRN IV BS between 50-70; Start 07/21/17 at 14:30 Diagnostic Test (Pha) (Accu-Chek) 1 ea Q1H XX Last administered on 07/22/17 08 :41; Admin Dose 1 EA; Start 07/21/17 at 14:30 Guaifenesin/ Dextromethorphan 10 ml 10 ml Q4H PRN PO COUGH; Start 07/21/17 at 14:30 Potassium Phosphate 60 mm/ Sodium Chloride 270 ml @ 67.5 mls/hr ONCE ONCE IVPB Last administered on 07/22/17 06:00; Admin Dose 67.5 MLS/HR; Start at 06:00; Stop 07/22/17 at 09:59 Sodium Chloride (NS) 1,000 ml @ 75 mls/hr [id number] IV ; Start 07/22/17 at 09:30 ; Status UNV Insulin Glargine (Lantus) 20 unit DAILY@08 SC ; Start 07/22/17 at 09:30; Status UNV Miscellaneous Information (* Miscellaneous Pharmacy Order) Discontinue current oral sulfonylur... ONCE ONCE XX ; Start 07/22/17 at 09:30; Stop 07/22/17 at 09: 31; Status UNV Diagnostic Test (Pha) (Accu-Chek) 1 ea XX ; Start 07/23/17 at 02:00; Status UNV Miscellaneous Information (* Miscellaneous Pharmacy Order) HYPOGLYCEMIA PROTOCOL w... ONCE ONCE XX ; Start 07/22/17 at 09:30; Stop 07/22/17 at 09:31; Status UNV Miscellaneous Information (* Miscellaneous Pharmacy Order) Discontinue all previ... ONCE ONCE XX ; Start 07/22/17 at 09:30; Stop 07/22/17 at 09:31; Status UNV Diagnostic Test (Pha) (Accu-Chek) 1 XX ; Start 07/23/17 at 02:00; Status UNV SAUNDRA GONZALES Jul 22, 2017 09:43
[2017-07-22] MEDS ORDERED: GLUCAGON 1 MG INJ IM PRN (10:00)
[2017-07-22] MEDS ORDERED: GLUCOSE GEL 15 GRAM TUBE BUCCAL PRN (10:00)
[2017-07-22] MEDS ORDERED: GLUCOSE GEL 15 GRAM TUBE PO PRN ×2 (10:00)
[2017-07-22] MEDS ORDERED: DEXTROSE 50% 50 ML SYRINGE IV PRN ×2 (10:00)
[2017-07-22] MEDS: INSULIN GLARGINE [LANtus] 3 ML PEN SC SCH (10:35)
[2017-07-22 11:10] LABS: CALCIUM 9.4 mg/dl (8.4-10.2); CREATININE 0.77 mg/dl (0.61-1.24)
[2017-07-22] MEDS: INSULIN ASPART [NOVOLOG] 3 ML PEN SC SCH ×3 (11:27→20:50)
[2017-07-22] MEDS: FLUTICASONE 0.05% 16 GM NAS SPRAY NASAL SCH ×2 (13:21→21:12)
--- NOTE | 2017-07-22 17:19 | CONS ---
Date/Time of Note Date/Time of Note DATE: 07/22/17 TIME: 17:10 Assessment/Plan Assessment/Plan Problems: (1) Acute pancreatitis Status: Acute Comment: The etiology of this is unclear. He does not consume a great deal of alcohol if we believe his history. In addition to this he has not been on medications. However there may be a biliary source for this and as such I am ordering testing to evaluate for that. It is resolving nicely. Based on the results of the ultrasound he may need further abdominal image imaging Qualifiers: Qualified Code: K85.90 - Acute pancreatitis without infection or necrosis, unspecified pancreatitis type (2) Diabetic ketoacidosis Status: Acute Comment: His sugars have come down although based on his lab tests as of this point in time he has not resolved his metabolic acidosis. Waiting on the follow -up chemistry panel to make further determinations. If he had not had pancreatitis [place] would be a consult position where he might consider using a drug such as a DPP 4 inhibitor drug. However this situation with the acute pancreatitis I would not do that. For now he will be on insulin based protocol as we gather more information than we can transition other combinations of medications. Qualifiers: Qualified Code: E13.10 - Diabetic ketoacidosis without coma associated with other specified diabetes mellitus Consultation Date/Type/Reason Admit Date/Time Jul 21, 2017 at 12:32 Date of Consultation: Jul 22, 2017 Type of Consultation: Endocrinology Reason for Consultation Acute pancreatitis with DKA in a patient without known diabetes Referring Provider: SAUNDRA GONZALES Hx of Present Illness 26-year-old single gentleman with a history of general good health. Roughly 1 week prior to admission he developed some abdominal nausea and pain. On or about July 17 he developed polyuria with polydipsia. He ultimately developed nausea and vomiting came to the emergency room where he was found to have be in diabetic ketoacidosis. Retrospectively notes a 20 pound weight loss in the last 2 months. He also notes a history of when eating greasy foods some upper abdominal pain that he says is both right and left. No known history of taking any medications he consumes only a small amount of alcohol documented below. He has not been on any medications associated with pancreatitis and has not been on any medications at all not been using any home remedies or vitamins. Constitutional: no complaints (Denies fevers chills or sweats but has had the aforementioned unplanned 20 pound weight loss) Eyes: other (Blurry vision recently for reading distances) ENT: no complaints (No teeth pain) Respiratory: no complaints Cardiovascular: no complaints Gastrointestinal: nausea, other (Possible upper quadrant pain with greasy meals ), vomiting Genitourinary: no complaints Musculoskeletal: no complaints Skin: no complaints Neurologic: no complaints Endocrine: polydypsia, polyuria Psychological: nl mood/affect, no complaints Past Medical History Medical History: no pertinent history Past Surgical History Past Surgical Hx: no surgical history Family History Significant Family History: heart disease (His father), diabetes (In his mother ) Social History Alcohol Use: other (Reports he drinks Cognac 3-4 days per week) Smoking Status: Current every day smoker Drug Use: none Exam/Review of Systems Vital Signs Vitals Vital Signs Date Time Temp Pulse Resp B/P Pulse Ox O2 Delivery O2 Flow Rate FiO2 07/22/17 16:00 92 07/22/17 13:00 98.2 16 118/82 98 Room Air Intake and Output 07/21/17 07/21/17 07/22/17 15:00 23:00 07:00 Intake Total 1685.319 ml 998 ml Output Total 2300 ml 800 ml Balance -614.681 ml 198 ml Exam Slender male in no wili distress Constitutional: alert, oriented, well developed Psych: no complaints Head: atraumatic, normocephalic Eyes: EOMI, nl conjunctiva, nl lids, nl sclera ENMT: mucosa pink and moist, nl external ears & nose, nl lips & teeth, nl nasal mucosa & septum Neck: non-tender, supple Respiratory: clear to auscultation, normal air movement Cardiovascular: nl pulses, regular rate and rhythm Gastrointestinal: nl liver, spleen, non-tender, soft Extremities: normal pulses Neurological: CALL CENTER TRAINER II-XII intact, nl mental status, nl speech, nl strength Results Result Diagram: 07/22/17 0505 07/22/17 1026 Results 24 hrs Laboratory Tests Test 07/21/17 17:23 07/21/17 18:08 07/21/17 19:24 07/21/17 20:29 Bedside Glucose 119 111 119 134 Test 07/21/17 21:21 07/21/17 22:34 07/21/17 23:15 07/21/17 23:30 Bedside Glucose 112 140 103 Sodium Level 137 Potassium Level 3.0 L Chloride Level 115 H Carbon Dioxide Level 13 L Anion Gap 12 Blood Urea Nitrogen 8 Creatinine 0.80 Glucose Level 105 Calcium Level 8.5 Test 07/22/17 00:35 07/22/17 01:36 07/22/17 02:35 07/22/17 03:26 Bedside Glucose 106 99 109 137 Test 07/22/17 04:20 07/22/17 05:05 07/22/17 05:06 07/22/17 05:19 Bedside Glucose 128 167 White Blood Count 6.2 # Red Blood Count 4.74 Hemoglobin 14.4 Hematocrit 40.4 L Mean Corpuscular Volume 85.2 Mean Corpuscular Hemoglobin 30.4 Mean Corpuscular Hemoglobin Concent 35.6 Red Cell Distribution Width 12.6 Platelet Count 162 # Mean Platelet Volume 9.8 Neutrophils % 63.3 Lymphocytes % 19.9 Monocytes % 13.9 H Eosinophils % 1.5 Basophils % 0.3 Nucleated Red Blood Cells % 0.0 Neutrophils # 3.9 Lymphocytes # 1.2 Monocytes # 0.9 Eosinophils # 0.1 Basophils # 0.0 Nucleated Red Blood Cells # 0.0 Hemoglobin A1c 10.6 H Triglycerides Level 127 Cholesterol Level 152 LDL Cholesterol, Calculated 91 HDL Cholesterol 36 Cholesterol/HDL Ratio 4.2 Thyroid Stimulating Hormone (TSH) 0.796 Sodium Level 139 Potassium Level 3.0 L Chloride Level 116 H Carbon Dioxide Level 12 L Anion Gap 14 Blood Urea Nitrogen 8 Creatinine 0.73 Glucose Level 151 Calcium Level 8.5 Phosphorus Level 0.9 L Test 07/22/17 06:33 07/22/17 07:29 07/22/17 08:37 07/22/17 10:26 Bedside Glucose 216 210 212 Sodium Level 140 Potassium Level 3.0 L Chloride Level 115 H Carbon Dioxide Level 13 L Anion Gap 15 Blood Urea Nitrogen 8 Creatinine 0.77 Glucose Level 163 Calcium Level 9.4 Lipase 663 H Test 07/22/17 11:24 07/22/17 16:47 Bedside Glucose 191 168 Medications Medications Current Medications Ondansetron HCl (Zofran Inj) 4 mg Q6H PRN IV NAUSEA AND/OR VOMITING Last administered on 07/22/17t 04:13; Admin Dose 4 MG; Start 07/21/17 at 14:30 Acetaminophen (Tylenol Tab) 650 mg Q6H PRN PO PAIN LEVEL 1-3 OR FEVER; Start at 14:30 Acetaminophen/ Hydrocodone Bitart ([place] (5/325)) 1 tab Q6H PRN PO MODERATE PAIN LEVEL 4-6; Start 07/21/17 at 14:30 Morphine Sulfate (morphine) 2 mg Q4H PRN IV SEVERE PAIN LEVEL 7-10; Start 07/21 at 14:30 Docusate Sodium (Colace) 100 mg Q12H PRN PO CONSTIPATION; Start 07/21/17 at 14: 30 Magnesium Hydroxide (Milk Of Mag) 30 ml DAILY PRN PO CONSTIPATION; Start at 14:30 Sodium Biphosphate/ Sodium Phosphate (Fleet Enema) 133 ml DAILY PRN [place] CONSTIPATION; Start 07/21/17 at 14:30 Pantoprazole (Protonix Tab) 40 mg DAILY@06 PO Last administered on 07/22/17 05 :17; Admin Dose 40 MG; Start 07/22/17 at 06:00 Heparin Sodium (Porcine) (Heparin (5000 Units/0.5 ml)) 5,000 unit Q12 SC Last administered on 07/22/17 08:11; Admin Dose 5,000 UNIT; Start 07/21/17 at 21:00 Lorazepam (Ativan) 0.5 mg Q6H PRN IV ANXIETY; Start 07/21/17 at 14:30 Hydralazine HCl (Apresoline) 10 mg Q6H PRN IV ELEVATED BLOOD PRESSURE; Start at 14:30 Nitroglycerin (Nitroglycerin (Sl Tab) 0.4 Mg) 1 tab Q5M PRN SL ANGINA; Start at 14:30 Guaifenesin/ Dextromethorphan 10 ml 10 ml Q4H PRN PO COUGH; Start 07/21/17 at 14:30 Sodium Chloride (NS) 1,000 ml @ 75 mls/hr [id number] IV Last administered on 07/22 09:57; Admin Dose 75 MLS/HR; Start 07/22/17 at 09:30 Insulin Glargine (Lantus) 20 unit DAILY@08 SC Last administered on 07/22/17 10 :35; Admin Dose 20 UNIT; Start 07/22/17 at 09:30 Diagnostic Test (Pha) (Accu-Chek) 1 ea 02 XX ; Start 07/23/17 at 02:00 Miscellaneous Information 1 ea NOTE XX ; Start 07/22/17 at 10:00 Glucose (Glutose) 22.5 gm Q15M PRN PO DECREASED GLUCOSE; Start 07/22/17 at 10: 00 Dextrose (D50w Syringe) 25 ml Q15M PRN IV DECREASED GLUCOSE; Start 07/22/17 at 10:00 Dextrose (D50w Syringe) 50 ml Q15M PRN IV DECREASED GLUCOSE; Start 07/22/17 at 10:00 Glucagon (Glucagen) 1 mg Q15M PRN IM DECREASED GLUCOSE; Start 07/22/17 at 10:00 Glucose (Glutose) 15 gm Q15M PRN BUCCAL DECREASED GLUCOSE; Start 07/22/17 at 10 :00 Fluticasone Propionate (Flonase 0.05% Nasal) 1 spray BID NASAL Last administered on 07/22/17t 13:21; Admin Dose 1 SPRAY; Start 07/22/17 at 12:30 FANY SAMS MD Jul 22, 2017 17:19
[2017-07-23 00:40] VITALS: BP 135/83; RESP 20
[2017-07-23] MEDS: ACCU-CHEK XX SCH (01:12)
[2017-07-23 01:54] VITALS: BP 137/81; RESP 20
[2017-07-23] MEDS ORDERED: ACCU-CHEK XX SCH (02:00)
[2017-07-23] MEDS: PANTOPRAZOLE (EC) 40 MG TAB PO SCH (06:00)
[2017-07-23 07:30] VITALS: BP 129/80; RESP 20
[2017-07-23 07:57] LABS: BASOPHIL # 0.1 10^3/ul (0.0-0.1); BASOPHILS % 0.6 % (0.0-2.0); EOSINOPHILS # 0.2 10^3/ul (0.0-0.5); EOSINOPHILS % 1.8 % (0.0-7.0); HEMATOCRIT 43.7 % (42.0-52.0); HEMOGLOBIN 15.9 g/dl (14.0-18.0); LYMPHOCYTES # 2.3 10^3/ul (0.8-2.9); LYMPHOCYTES % 27.7 % (15.0-51.0); MEAN CORPUSCULAR HEMOGLOBIN 30.1 pg (29.0-33.0); MEAN CORPUSCULAR HGB CONC 36.4 g/dl (32.0-37.0); MEAN CORPUSCULAR VOLUME 82.8 fl (82.0-101.0); MEAN PLATELET VOLUME 9.5 fl (7.4-10.4); MONOCYTE # 1.1 10^3/ul (0.3-0.9); MONOCYTES % 13.1 % (0.0-11.0); NEUTROPHIL # 4.7 10^3/ul (1.6-7.5); NEUTROPHILS % 55.8 % (39.0-77.0); PLATELET COUNT 193 10^3/UL (140-415); RED BLOOD COUNT 5.28 10^6/ul (4.70-6.10); RED CELL DISTRIBUTION WIDTH 12.6 % (11.5-14.5); WHITE BLOOD COUNT 8.4 10^3/ul (4.8-10.8)
--- NOTE | 2017-07-23 08:08 | RADRPT ---
PROCEDURE: US Abdomen and Retroperitoneum. CLINICAL INDICATION: Abdominal pain. TECHNIQUE: Multiple real-time longitudinal and transverse images were acquired of the patient's ab domen and retroperitoneum utilizing a curved array transducer. COMPARISON: No prior studies are available for comparison. FINDINGS: The liver is normal in size and normal in echogenicity. The liver has a normal smooth surface. Ther e is no focal hepatic lesion. Color Doppler and pulsed Doppler sonography demonstrate normal antegra de flow in the portal vein. The gallbladder is contracted but otherwise unremarkable with no stones or wall thickening. There is no fluid around the gallbladder. The intrahepatic bile ducts are not dilated. The common bile duct is not visualized. The spleen is normal in size. There is no focal splenic lesion. The pancreas is not visualized due to overlying bowel gas. There is no free fluid. The right kidney measures 10.6 cm and the left kidney measures 11.8 cm. There is no renal mass. There is no hydronephrosis or calculus. The abdominal aorta is not dilated. The inferior vena cava is unremarkable. IMPRESSION: 1. Contracted gallbladder. No gallstones or evidence of cholecystitis. 2. Common bile duct not visualized. 3. Pancreas not visualized. 4. Otherwise unremarkable ultrasound of the abdomen and retroperitoneum. RPTAT: QQ .Remy Haq MD, MD Date Time Electronically viewed and signed by .Remy Haq MD, on 07/23/2017 08:08 .R/
[2017-07-23] MEDS: INSULIN GLARGINE [LANtus] 3 ML PEN SC SCH (08:09)
[2017-07-23] MEDS: INSULIN ASPART [NOVOLOG] 3 ML PEN SC SCH ×5 (08:09→21:00)
[2017-07-23 08:11] LABS: MAGNESIUM 2.5 mg/dl (1.7-2.5); PHOSPHORUS 2.2 mg/dl (2.5-4.9)
[2017-07-23 08:14] LABS: CALCIUM 9.7 mg/dl (8.4-10.2); CREATININE 0.74 mg/dl (0.61-1.24)
[2017-07-23 08:16] LABS: POTASSIUM 2.8 mmol/L (3.5-5.1)
[2017-07-23] MEDS: FLUTICASONE 0.05% 16 GM NAS SPRAY NASAL SCH ×2 (08:43→21:04)
[2017-07-23] MEDS ORDERED: POTASSIUM CHLORIDE (SR) 20 MEQ TAB PO STA ×2 (09:13→13:51)
--- NOTE | 2017-07-23 09:28 | PN ---
Date/Time of Note Date/Time of Note DATE: 07/23/17 TIME: 09:21 Assessment/Plan VTE Prophylaxis VTE Prophylaxis Intervention: SCD's Lines/Catheters IV Catheter Type (from Nrs): Peripheral IV Urinary Cath still in place: No Assessment/Plan Chief Complaint/Hosp Course Assessment and plan: A 26-year-old male coming with abdominal pain, nausea, vomiting, and increased urinary frequency, symptoms and signs of diabetic ketoacidosis, also with signs of pancreatitis. 1. Diabetic ketoacidosis -resolving. Unclear if this is type I or type 2 diabetes, as endocrinology team is doing some blood tests to help determine this. - Continue aggressive IV fluid hydration, subcu insulin including Lantus and aspart with meals - Replete the electrolytes as well. A1c is 11. -Follow up endocrinology and in service educator recommendations as well. 2. Pancreatitis - unclear source, lipase was 4700 on admission, -> 2300 -> 663. Today's a.m. lipase levels are still pending - Cautiously continue low-carb diet, follow-up lipase levels from this morning - Antiemetic medications and pain control medications as well. 3. Gastroenterology prophylaxis. Proton pump inhibitor. 4. Deep venous thrombosis prophylaxis -SCDs Problems: Subjective 24 Hr Interval Summary Free Text/Dictation Patient out of ICU now. Seen by endocrinology team yesterday. No acute events overnight. Presently being educated by in service educator in the room. Exam/Review of Systems Vital Signs Vitals Vital Signs Date Time Temp Pulse Resp B/P Pulse Ox O2 Delivery O2 Flow Rate FiO2 07/23/17 07:30 98.0 98 20 129/80 98 07/22/17 23:46 Room Air Intake and Output 07/22/17 07/22/17 07/23/17 15:00 23:00 07:00 Intake Total 1299 ml 560 ml Output Total 2100 ml 1100 ml 600 ml Balance -801 ml -540 ml -600 ml Exam GENERAL: Lying in bed, answers questions appropriately HEENT: Pupils equal, round, react to light. Extraocular muscles intact. NECK: Supple. No thyromegaly. LUNGS: Clear to auscultation bilaterally. CARDIOVASCULAR: S1, S2 heard. No rubs or gallops. ABDOMEN: Soft, nontender, nondistended. Normal bowel sounds. No rebound or guarding. MUSCULOSKELETAL: No lower extremity bilaterally. NEUROLOGIC: No focal deficits. Results Result Diagram: 07/23/17 0721 07/23/17 0721 Results 24 hrs Laboratory Tests Test 07/22/17 10:26 07/22/17 11:24 07/22/17 16:47 07/22/17 20:47 Sodium Level 140 Potassium Level 3.0 L Chloride Level 115 H Carbon Dioxide Level 13 L Anion Gap 15 Blood Urea Nitrogen 8 Creatinine 0.77 Glucose Level 163 Calcium Level 9.4 Lipase 663 H Bedside Glucose 191 168 215 Test 07/23/17 01:05 07/23/17 07:21 07/23/17 08:04 Bedside Glucose 245 H 242 H White Blood Count 8.4 # Red Blood Count 5.28 Hemoglobin 15.9 Hematocrit 43.7 Mean Corpuscular Volume 82.8 Mean Corpuscular Hemoglobin 30.1 Mean Corpuscular Hemoglobin Concent 36.4 Red Cell Distribution Width 12.6 Platelet Count 193 Mean Platelet Volume 9.5 Neutrophils % 55.8 Lymphocytes % 27.7 Monocytes % 13.1 H Eosinophils % 1.8 Basophils % 0.6 Nucleated Red Blood Cells % 0.0 Neutrophils # 4.7 Lymphocytes # 2.3 Monocytes # 1.1 H Eosinophils # 0.2 Basophils # 0.1 Nucleated Red Blood Cells # 0.0 Sodium Level 140 Potassium Level 2.8 *L Chloride Level 108 Carbon Dioxide Level 15 L Anion Gap 20 H Blood Urea Nitrogen 13 Creatinine 0.74 Glucose Level 253 H Calcium Level 9.7 Phosphorus Level 2.2 #L Magnesium Level 2.5 Hepatitis B Surface Antigen NEGATIVE Hepatitis C Antibody NEGATIVE Medications Medications Current Medications Ondansetron HCl (Zofran Inj) 4 mg Q6H PRN IV NAUSEA AND/OR VOMITING Last administered on 07/22/17t 04:13; Admin Dose 4 MG; Start 07/21/17 at 14:30 Acetaminophen (Tylenol Tab) 650 mg Q6H PRN PO PAIN LEVEL 1-3 OR FEVER; Start at 14:30 Acetaminophen/ Hydrocodone Bitart ([place] (5/325)) 1 tab Q6H PRN PO MODERATE PAIN LEVEL 4-6; Start 07/21/17 at 14:30 Morphine Sulfate (morphine) 2 mg Q4H PRN IV SEVERE PAIN LEVEL 7-10; Start 07/21 at 14:30 Docusate Sodium (Colace) 100 mg Q12H PRN PO CONSTIPATION; Start 07/21/17 at 14: 30 Magnesium Hydroxide (Milk Of Mag) 30 ml DAILY PRN PO CONSTIPATION; Start at 14:30 Pantoprazole (Protonix Tab) 40 mg DAILY@06 PO Last administered on 07/22/17 05 :17; Admin Dose 40 MG; Start 07/22/17 at 06:00 Lorazepam (Ativan) 0.5 mg Q6H PRN IV ANXIETY; Start 07/21/17 at 14:30 Hydralazine HCl (Apresoline) 10 mg Q6H PRN IV ELEVATED BLOOD PRESSURE; Start at 14:30 Nitroglycerin (Nitroglycerin (Sl Tab) 0.4 Mg) 1 tab Q5M PRN SL ANGINA; Start at 14:30 Guaifenesin/ Dextromethorphan (Robitussin Dm Liquid Cup) 10 ml Q4H PRN PO COUGH ; Start 07/21/17 at 14:30 Insulin Glargine (Lantus) 20 unit DAILY@08 SC Last administered on 07/23/17 08 :09; Admin Dose 20 UNIT; Start 07/22/17 at 09:30 Diagnostic Test (Pha) (Accu-Chek) 1 ea 02 XX Last administered on 07/23/17 01: 12; Admin Dose 1 EA; Start 07/23/17 at 02:00 Miscellaneous Information 1 ea NOTE XX ; Start 07/22/17 at 10:00 Glucose (Glutose) 22.5 gm Q15M PRN PO DECREASED GLUCOSE; Start 07/22/17 at 10: 00 Dextrose (D50w Syringe) 25 ml Q15M PRN IV DECREASED GLUCOSE; Start 07/22/17 at 10:00 Dextrose (D50w Syringe) 50 ml Q15M PRN IV DECREASED GLUCOSE; Start 07/22/17 at 10:00 Glucagon (Glucagen) 1 mg Q15M PRN IM DECREASED GLUCOSE; Start 07/22/17 at 10:00 Glucose (Glutose) 15 gm Q15M PRN BUCCAL DECREASED GLUCOSE; Start 07/22/17 at 10 :00 Fluticasone Propionate 1 spray 1 spray BID NASAL Last administered on 08:43; Admin Dose 1 SPRAY; Start 07/22/17 at 12:30 Potassium Phosphate/Sodium Chloride (K Phos (Meq)/NS) 259.0909 ml @ 64.773 m... ONCE ONCE IVPB ; Start 07/23/17 at 09:30; Stop 07/23/17 at 13:29; Status SAUNDRA MCCABE Jul 23, 2017 09:28
[2017-07-23] MEDS ORDERED: POTASSIUM PHOSPHATE 40 MEQ in SOD CHLORIDE 0.9% 250 ML IVPB ONE (09:45)
[2017-07-23] MEDS ORDERED: INSULIN ASPART [NOVOLOG] 3 ML PEN SC SCH (12:15)
[2017-07-23 13:11] VITALS: BP 136/76; RESP 20
[2017-07-23] MEDS ORDERED: POTASSIUM CHLORIDE (SR) 20 MEQ TAB PO ONE (13:30)
[2017-07-23 13:56] LABS: MICROALBUMIN 11.5 mg/dL
[2017-07-23] MEDS ORDERED: INSULIN GLARGINE [LANtus] 3 ML PEN SC ONE (14:00)
--- NOTE | 2017-07-23 14:02 | CONS ---
Date/Time of Note Date/Time of Note DATE: 07/23/17 TIME: 13:59 Assessment/Plan Assessment/Plan Chief Complaint/Hosp Course 26-year-old single gentleman with a history of general good health. Roughly 1 week prior to admission he developed some abdominal nausea and pain. On or about July 17 he developed polyuria with polydipsia. He ultimately developed nausea and vomiting came to the emergency room where he was found to have be in diabetic ketoacidosis. Retrospectively notes a 20 pound weight loss in the last 2 months. He also notes a history of when eating greasy foods some upper abdominal pain that he says is both right and left. No known history of taking any medications he consumes only a small amount of alcohol documented below. He has not been on any medications associated with pancreatitis and has not been on any medications at all not been using any home remedies or vitamins. Problems: (1) Acute pancreatitis Status: Acute Comment: Abdominal ultrasound was non-revealing. Please note however the gallbladder was contracted. It is still possible he could have biliary disease to account for this and will go ahead and order an MRCP although the index of suspicion is decreasing. Ultimately because this is being worked up by the primary care team Qualifiers: Pancreatitis type: unspecified pancreatitis type Acute pancreatitis complication: no infection or necrosis Qualified Code: K85.90 - Acute pancreatitis without infection or necrosis, unspecified pancreatitis type (2) Diabetic ketoacidosis Status: Acute Comment: Sugars have come down although he still in the 200s. I will adjust his insulin regimen. Even if he is a type II diabetic we do not have verification of that yet and as such she will be treated as a type I diabetic for the time being. Please note the usage of DPP for drug or GLP 1 drug here it is tempting but with the acute pancreatitis this should be avoided Qualifiers: Diabetes mellitus type: other specified (including JI) Diabetes mellitus complication detail: without coma Qualified Code: E13.10 - Diabetic ketoacidosis without coma associated with other specified diabetes mellitus Consultation Date/Type/Reason Admit Date/Time Jul 21, 2017 at 12:32 Initial Consult Date 07/22/17 Type of Consultation: Endocrinology Reason for Consultation New onset diabetes mellitus with DKA in the setting of acute pancreatitis Referring Provider: SAUNDRA GONZALES 24 HR Interval Summary Free Text/Dictation She reports his abdominal symptoms have resolved and he is feeling much better. Constitutional: no complaints (Denies fevers chills or sweats) Detailed Summary Respiratory: no complaints Cardiovascular: no complaints Gastrointestinal: no complaints Exam/Review of Systems Vital Signs Vitals Vital Signs Date Time Temp Pulse Resp B/P Pulse Ox O2 Delivery O2 Flow Rate FiO2 07/23/17 13:11 97.9 97 20 136/76 98 07/22/17 23:46 Room Air Intake and Output 07/22/17 07/22/17 07/23/17 15:00 23:00 07:00 Intake Total 1299 ml 560 ml Output Total 2100 ml 1100 ml 600 ml Balance -801 ml -540 ml -600 ml Exam Constitutional: alert, oriented Respiratory: clear to auscultation, normal air movement Cardiovascular: nl pulses, regular rate and rhythm Gastrointestinal: nl liver, spleen, non-tender, soft Results Result Diagram: 07/23/17 0721 07/23/17 0721 Results 24 hrs Laboratory Tests Test 07/22/17 16:47 07/22/17 20:47 07/23/17 01:05 07/23/17 07:21 Bedside Glucose 168 215 245 H White Blood Count 8.4 # Red Blood Count 5.28 Hemoglobin 15.9 Hematocrit 43.7 Mean Corpuscular Volume 82.8 Mean Corpuscular Hemoglobin 30.1 Mean Corpuscular Hemoglobin Concent 36.4 Red Cell Distribution Width 12.6 Platelet Count 193 Mean Platelet Volume 9.5 Neutrophils % 55.8 Lymphocytes % 27.7 Monocytes % 13.1 H Eosinophils % 1.8 Basophils % 0.6 Nucleated Red Blood Cells % 0.0 Neutrophils # 4.7 Lymphocytes # 2.3 Monocytes # 1.1 H Eosinophils # 0.2 Basophils # 0.1 Nucleated Red Blood Cells # 0.0 Sodium Level 140 Potassium Level 2.8 *L Chloride Level 108 Carbon Dioxide Level 15 L Anion Gap 20 H Blood Urea Nitrogen 13 Creatinine 0.74 Glucose Level 253 H Calcium Level 9.7 Phosphorus Level 2.2 #L Magnesium Level 2.5 Lipase 875 H Hepatitis B Surface Antigen NEGATIVE Hepatitis C Antibody NEGATIVE Test 07/23/17 08:04 07/23/17 12:00 Bedside Glucose 242 H 226 H Medications Medications Current Medications Ondansetron HCl (Zofran Inj) 4 mg Q6H PRN IV NAUSEA AND/OR VOMITING Last administered on 07/22/17t 04:13; Admin Dose 4 MG; Start 07/21/17 at 14:30 Acetaminophen (Tylenol Tab) 650 mg Q6H PRN PO PAIN LEVEL 1-3 OR FEVER; Start at 14:30 Acetaminophen/ Hydrocodone Bitart ([place] (5/325)) 1 tab Q6H PRN PO MODERATE PAIN LEVEL 4-6; Start 07/21/17 at 14:30 Morphine Sulfate (morphine) 2 mg Q4H PRN IV SEVERE PAIN LEVEL 7-10; Start 07/21 at 14:30 Docusate Sodium (Colace) 100 mg Q12H PRN PO CONSTIPATION; Start 07/21/17 at 14: 30 Magnesium Hydroxide (Milk Of Mag) 30 ml DAILY PRN PO CONSTIPATION; Start at 14:30 Pantoprazole (Protonix Tab) 40 mg DAILY@06 PO Last administered on 07/22/17 05 :17; Admin Dose 40 MG; Start 07/22/17 at 06:00 Lorazepam (Ativan) 0.5 mg Q6H PRN IV ANXIETY; Start 07/21/17 at 14:30 Hydralazine HCl (Apresoline) 10 mg Q6H PRN IV ELEVATED BLOOD PRESSURE; Start at 14:30 Nitroglycerin (Nitroglycerin (Sl Tab) 0.4 Mg) 1 tab Q5M PRN SL ANGINA; Start at 14:30 Guaifenesin/ Dextromethorphan (Robitussin Dm Liquid Cup) 10 ml Q4H PRN PO COUGH ; Start 07/21/17 at 14:30 Diagnostic Test (Pha) (Accu-Chek) 1 ea 02 XX Last administered on 07/23/17 01: 12; Admin Dose 1 EA; Start 07/23/17 at 02:00 Miscellaneous Information 1 ea NOTE XX ; Start 07/22/17 at 10:00 Glucose (Glutose) 22.5 gm Q15M PRN PO DECREASED GLUCOSE; Start 07/22/17 at 10: 00 Dextrose (D50w Syringe) 25 ml Q15M PRN IV DECREASED GLUCOSE; Start 07/22/17 at 10:00 Dextrose (D50w Syringe) 50 ml Q15M PRN IV DECREASED GLUCOSE; Start 07/22/17 at 10:00 Glucagon (Glucagen) 1 mg Q15M PRN IM DECREASED GLUCOSE; Start 07/22/17 at 10:00 Glucose (Glutose) 15 gm Q15M PRN BUCCAL DECREASED GLUCOSE; Start 07/22/17 at 10 :00 Fluticasone Propionate (Flonase 0.05% Nasal) 1 spray BID NASAL Last administered on 07/23/17t 08:43; Admin Dose 1 SPRAY; Start 07/22/17 at 12:30 Influenza Virus Vaccine (Fluzone) 0.5 ml ONCE ONCE IM* ; Start 07/23/17 at 16:00 ; Stop 07/23/17 at 16:01 Insulin Glargine (Lantus) 28 unit DAILY@08 SC ; Start 07/24/17 at 08:00 Insulin Glargine (Lantus) 8 unit ONCE ONCE SC ; Start 07/23/17 at 14:00; Stop 07/23/17 at 14:01 FANY SAMS MD Jul 23, 2017 14:01
[2017-07-23] MEDS ORDERED: INFLUENZA VIRUS VACCINE 0.5 ML SYG IM* ONE (16:00)
[2017-07-23 21:32] VITALS: BP 113/65; RESP 18
[2017-07-24] MEDS: ACCU-CHEK XX SCH (01:31)
[2017-07-24 01:54] VITALS: BP 114/68; RESP 20
[2017-07-24] MEDS: PANTOPRAZOLE (EC) 40 MG TAB PO SCH (05:55)
[2017-07-24 06:16] LABS: BASOPHIL # 0.1 10^3/ul (0.0-0.1); BASOPHILS % 0.8 % (0.0-2.0); EOSINOPHILS # 0.3 10^3/ul (0.0-0.5); EOSINOPHILS % 3.3 % (0.0-7.0); HEMATOCRIT 40.8 % (42.0-52.0); HEMOGLOBIN 14.8 g/dl (14.0-18.0); LYMPHOCYTES # 2.5 10^3/ul (0.8-2.9); LYMPHOCYTES % 28.2 % (15.0-51.0); MEAN CORPUSCULAR HEMOGLOBIN 30.3 pg (29.0-33.0); MEAN CORPUSCULAR HGB CONC 36.3 g/dl (32.0-37.0); MEAN CORPUSCULAR VOLUME 83.4 fl (82.0-101.0); MEAN PLATELET VOLUME 9.5 fl (7.4-10.4); MONOCYTE # 1.2 10^3/ul (0.3-0.9); MONOCYTES % 12.8 % (0.0-11.0); NEUTROPHIL # 4.9 10^3/ul (1.6-7.5); NEUTROPHILS % 54.1 % (39.0-77.0); PLATELET COUNT 187 10^3/UL (140-415); RED BLOOD COUNT 4.89 10^6/ul (4.70-6.10); RED CELL DISTRIBUTION WIDTH 12.2 % (11.5-14.5)
[2017-07-24 06:41] LABS: CALCIUM 9.2 mg/dl (8.4-10.2); CREATININE 0.92 mg/dl (0.61-1.24); POTASSIUM 3.1 mmol/L (3.5-5.1)
[2017-07-24 07:42] VITALS: BP 121/76; RESP 18
[2017-07-24] MEDS: MAGNESIUM HYDROXIDE 30ML CUP PO PRN (07:55)
[2017-07-24] MEDS: FLUTICASONE 0.05% 16 GM NAS SPRAY NASAL SCH ×2 (07:55→20:28)
[2017-07-24] MEDS ORDERED: INSULIN GLARGINE [LANtus] 3 ML PEN SC SCH (08:00)
[2017-07-24] MEDS: INSULIN ASPART [NOVOLOG] 3 ML PEN SC SCH ×7 (08:01→20:30)
--- NOTE | 2017-07-24 08:04 | RADRPT ---
PROCEDURE: MRCP. CLINICAL INDICATION: Diabetes. Pancreatitis. TECHNIQUE: MRCP was performed. The following sequences were obtained: Three plane gradient echo localizers, coronal gradient echo images, breath hold axial T2-weighted fat saturation images, iesha nal T2-weighted images, axial 3-D LAVA images, axial T2-weighted breath hold fast spin echo images, and 3-D coronal rotating MIP images of the biliary tree. COMPARISON: Abdomen ultrasound done earlier the same day FINDINGS: The liver is normal in size. There is normal signal intensity within the liver. There is a small benign cyst inferiorly in the right hepatic lobe measuring 0.8 cm. There is no othe r focal hepatic lesion. The spleen is normal in size and homogeneous in signal intensity. There are no gallstones in the gallbladder. The common bile duct is normal with no dilatation or filling defect. The pancreatic duct is partially visualized and is grossly normal. The kidneys are grossly normal. The abdominal aorta is not dilated. IMPRESSION: 1. Small benign cyst inferiorly in the right hepatic lobe. 2. Normal gallbladder and bile ducts. 3. Otherwise unremarkable study. RPTAT: QQ .Remy Haq MD, Date Time Electronically viewed and signed by .Remy Haq MD, on 07/24/2017 08:04 .R/
--- NOTE | 2017-07-24 10:07 | PN ---
Date/Time of Note Date/Time of Note DATE: 07/24/17 TIME: 10:05 Assessment/Plan VTE Prophylaxis VTE Prophylaxis Intervention: SCD's Lines/Catheters IV Catheter Type (from [facility]): [facility] [facility] Urinary Cath still in place: No Assessment/Plan Chief Complaint/Hosp Course Assessment and plan: A 26-year-old male coming with abdominal pain, nausea, vomiting, and increased urinary frequency, symptoms and signs of diabetic ketoacidosis, also with signs of pancreatitis. 1. Diabetic ketoacidosis -resolving. Unclear if this is type I or type 2 diabetes, as endocrinology team is doing some blood tests to help determine this. - Continue aggressive IV fluid hydration, subcu insulin including Lantus and aspart with meals - Replete the electrolytes as well. A1c is 11. -Follow up endocrinology and field cane scaler helper recommendations as well. 2. Pancreatitis - unclear source, lipase was 4700 on admission, -> 2300 -> 663 ->1000. -Patient is asymptomatic, given slight elevation in lipase in the last 24 hours , will hold patient's lunch and restart feeding at dinnertime. Recheck lipase in the morning - Antiemetic medications and pain control medications as well. 3. Gastroenterology prophylaxis. Proton pump inhibitor. 4. Deep venous thrombosis prophylaxis -SCDs Problems: Subjective 24 Hr Interval Summary Free Text/Dictation Patient denies any abdominal pain especially when eating food. Sugar still slightly elevated in the 200-220 range. MRCP performed yesterday. Exam/Review of Systems Vital Signs Vitals Vital Signs Date Time Temp Pulse Resp B/P Pulse Ox O2 Delivery O2 Flow Rate FiO2 07/24/17 07:42 98.0 95 18 121/76 100 07/22/17 23:46 Room Air Intake and Output 07/23/17 07/23/17 07/24/17 15:00 23:00 07:00 Intake Total 739.0909 ml Balance 739.0909 ml Exam GENERAL: Lying in bed, answers questions appropriately HEENT: Pupils equal, round, react to light. Extraocular muscles intact. NECK: Supple. No thyromegaly. LUNGS: Clear to auscultation bilaterally. CARDIOVASCULAR: S1, S2 heard. No rubs or gallops. ABDOMEN: Soft, nontender, nondistended. Normal bowel sounds. No rebound or guarding. MUSCULOSKELETAL: No lower extremity bilaterally. NEUROLOGIC: No focal deficits. Results Result Diagram: 07/24/17 0603 07/24/17 0531 Results 24 hrs Laboratory Tests Test 07/23/17 12:00 07/23/17 14:20 07/23/17 16:58 07/23/17 21:00 Bedside Glucose 226 H 194 251 H 87 Test 07/24/17 05:31 07/24/17 06:03 07/24/17 07:54 Sodium Level 138 Potassium Level 3.1 L Chloride Level 105 Carbon Dioxide Level 20 L Anion Gap 16 Blood Urea Nitrogen 22 H Creatinine 0.92 Glucose Level 278 H Calcium Level 9.2 Lipase 1095 H White Blood Count 9.0 Red Blood Count 4.89 Hemoglobin 14.8 Hematocrit 40.8 L Mean Corpuscular Volume 83.4 Mean Corpuscular Hemoglobin 30.3 Mean Corpuscular Hemoglobin Concent 36.3 Red Cell Distribution Width 12.2 Platelet Count 187 Mean Platelet Volume 9.5 Neutrophils % 54.1 Lymphocytes % 28.2 Monocytes % 12.8 H Eosinophils % 3.3 Basophils % 0.8 Nucleated Red Blood Cells % 0.0 Neutrophils # 4.9 Lymphocytes # 2.5 Monocytes # 1.2 H Eosinophils # 0.3 Basophils # 0.1 Nucleated Red Blood Cells # 0.0 Bedside Glucose 278 H Medications Medications Current Medications Ondansetron HCl (Zofran Inj) 4 mg Q6H PRN IV NAUSEA AND/OR VOMITING Last administered on 07/22/17 04:13; Admin Dose 4 MG; Start 07/21/17 at 14:30 Acetaminophen (Tylenol Tab) 650 mg Q6H PRN PO PAIN LEVEL 1-3 OR FEVER; Start at 14:30 Acetaminophen/ Hydrocodone Bitart ([place] (5/325)) 1 tab Q6H PRN PO MODERATE PAIN LEVEL 4-6; Start 07/21/17 at 14:30 Morphine Sulfate (morphine) 2 mg Q4H PRN IV SEVERE PAIN LEVEL 7-10; Start 07/21 at 14:30 Docusate Sodium (Colace) 100 mg Q12H PRN PO CONSTIPATION; Start 07/21/17 at 14: 30 Magnesium Hydroxide (Milk Of Mag) 30 ml DAILY PRN PO CONSTIPATION Last administered on 07/24/17 07:55; Admin Dose 30 ML; Start 07/21/17 at 14:30 Pantoprazole (Protonix Tab) 40 mg DAILY@06 PO Last administered on 07/24/17 05 :55; Admin Dose 40 MG; Start 07/22/17 at 06:00 Lorazepam (Ativan) 0.5 mg Q6H PRN IV ANXIETY; Start 07/21/17 at 14:30 Hydralazine HCl (Apresoline) 10 mg Q6H PRN IV ELEVATED BLOOD PRESSURE; Start at 14:30 Nitroglycerin (Nitroglycerin (Sl Tab) 0.4 Mg) 1 tab Q5M PRN SL ANGINA; Start at 14:30 Guaifenesin/ Dextromethorphan (Robitussin Dm Liquid Cup) 10 ml Q4H PRN PO COUGH ; Start 07/21/17 at 14:30 Diagnostic Test (Pha) (Accu-Chek) 1 ea 02 XX Last administered on 07/23/17 01: 12; Admin Dose 1 EA; Start 07/23/17 at 02:00 Miscellaneous Information 1 ea NOTE XX ; Start 07/22/17 at 10:00 Glucose (Glutose) 22.5 gm Q15M PRN PO DECREASED GLUCOSE; Start 07/22/17 at 10: 00 Dextrose (D50w Syringe) 25 ml Q15M PRN IV DECREASED GLUCOSE; Start 07/22/17 at 10:00 Dextrose (D50w Syringe) 50 ml Q15M PRN IV DECREASED GLUCOSE; Start 07/22/17 at 10:00 Glucagon (Glucagen) 1 mg Q15M PRN IM DECREASED GLUCOSE; Start 07/22/17 at 10:00 Glucose (Glutose) 15 gm Q15M PRN BUCCAL DECREASED GLUCOSE; Start 07/22/17 at 10 :00 Fluticasone Propionate 1 spray 1 spray BID NASAL Last administered on 07:55; Admin Dose 1 SPRAY; Start 07/22/17 at 12:30 Potassium Chloride (KCl 40 MEQ/250 ML NS) 250 ml @ 62.5 mls/hr Q4H IVPB ; Start 07/24/17 at 10:00; Stop 07/24/17 at 17:59; Status UNV Insulin Glargine (Lantus) 34 unit DAILY@08 SC ; Start 07/25/17 at 08:00 Procedures Procedures MRCP: IMPRESSION: 1. Small benign cyst inferiorly in the right hepatic lobe. 2. Normal gallbladder and bile ducts. 3. Otherwise unremarkable study. SAUNDRA GONZALES. Jul 24, 2017 10:07
[2017-07-24] MEDS ORDERED: POTASSIUM CHLORIDE 250 ML IVPB SCH (11:00)
[2017-07-24] MEDS: POTASSIUM CHLORIDE (SR) 20 MEQ TAB PO SCH ×2 (13:18→17:19)
--- NOTE | 2017-07-24 15:20 | CONS ---
Date/Time of Note Date/Time of Note DATE: 07/24/17 TIME: 15:18 Assessment/Plan Assessment/Plan Chief Complaint/Hosp Course 26-year-old single gentleman with a history of general good health. Roughly 1 week prior to admission he developed some abdominal nausea and pain. On or about July 17 he developed polyuria with polydipsia. He ultimately developed nausea and vomiting came to the emergency room where he was found to have be in diabetic ketoacidosis. Retrospectively notes a 20 pound weight loss in the last 2 months. He also notes a history of when eating greasy foods some upper abdominal pain that he says is both right and left. No known history of taking any medications he consumes only a small amount of alcohol documented below. He has not been on any medications associated with pancreatitis and has not been on any medications at all not been using any home remedies or vitamins. Problems: (1) Diabetic ketoacidosis Status: Acute Comment: I suspect this is probably DM1 with stressor induction due to pancreatitis. Adjusting insulins Qualifiers: Diabetes mellitus type: other specified (including JI) Diabetes mellitus complication detail: without coma Qualified Code: E13.10 - Diabetic ketoacidosis without coma associated with other specified diabetes mellitus Consultation Date/Type/Reason Admit Date/Time Jul 21, 2017 at 12:32 Initial Consult Date 07/22/17 Type of Consultation: Endocrinology Reason for Consultation New DM with DKA Referring Provider: SAUNDRA GONZALES 24 HR Interval Summary Constitutional: no complaints Exam/Review of Systems Vital Signs Vitals Vital Signs Date Time Temp Pulse Resp B/P Pulse Ox O2 Delivery O2 Flow Rate FiO2 07/24/17 07:42 98.0 95 18 121/76 100 07/22/17 23:46 Room Air Intake and Output 07/23/17 07/23/17 07/24/17 15:00 23:00 07:00 Intake Total 739.0909 ml Balance 739.0909 ml Exam Constitutional: alert, oriented Cardiovascular: nl pulses, regular rate and rhythm Gastrointestinal: nl liver, spleen, non-tender, soft Results Result Diagram: 07/24/17 0603 07/24/17 0531 Results 24 hrs Laboratory Tests Test 07/23/17 16:58 07/23/17 21:00 07/24/17 05:31 07/24/17 06:03 Bedside Glucose 251 H 87 Sodium Level 138 Potassium Level 3.1 L Chloride Level 105 Carbon Dioxide Level 20 L Anion Gap 16 Blood Urea Nitrogen 22 H Creatinine 0.92 Glucose Level 278 H Calcium Level 9.2 Lipase 1095 H White Blood Count 9.0 Red Blood Count 4.89 Hemoglobin 14.8 Hematocrit 40.8 L Mean Corpuscular Volume 83.4 Mean Corpuscular Hemoglobin 30.3 Mean Corpuscular Hemoglobin Concent 36.3 Red Cell Distribution Width 12.2 Platelet Count 187 Mean Platelet Volume 9.5 Neutrophils % 54.1 Lymphocytes % 28.2 Monocytes % 12.8 H Eosinophils % 3.3 Basophils % 0.8 Nucleated Red Blood Cells % 0.0 Neutrophils # 4.9 Lymphocytes # 2.5 Monocytes # 1.2 H Eosinophils # 0.3 Basophils # 0.1 Nucleated Red Blood Cells # 0.0 Test 07/24/17 07:54 07/24/17 11:51 Bedside Glucose 278 H 253 H Medications Medications Current Medications Ondansetron HCl (Zofran Inj) 4 mg Q6H PRN IV NAUSEA AND/OR VOMITING Last administered on 07/22/17 04:13; Admin Dose 4 MG; Start 07/21/17 at 14:30 Acetaminophen (Tylenol Tab) 650 mg Q6H PRN PO PAIN LEVEL 1-3 OR FEVER; Start at 14:30 Acetaminophen/ Hydrocodone Bitart ([place] (5/325)) 1 tab Q6H PRN PO MODERATE PAIN LEVEL 4-6; Start 07/21/17 at 14:30 Morphine Sulfate (morphine) 2 mg Q4H PRN IV SEVERE PAIN LEVEL 7-10; Start 07/21 at 14:30 Docusate Sodium (Colace) 100 mg Q12H PRN PO CONSTIPATION; Start 07/21/17 at 14: 30 Magnesium Hydroxide (Milk Of Mag) 30 ml DAILY PRN PO CONSTIPATION Last administered on 07/24/17 07:55; Admin Dose 30 ML; Start 07/21/17 at 14:30 Pantoprazole (Protonix Tab) 40 mg DAILY@06 PO Last administered on 07/24/17 05 :55; Admin Dose 40 MG; Start 07/22/17 at 06:00 Lorazepam (Ativan) 0.5 mg Q6H PRN IV ANXIETY; Start 07/21/17 at 14:30 Hydralazine HCl (Apresoline) 10 mg Q6H PRN IV ELEVATED BLOOD PRESSURE; Start at 14:30 Nitroglycerin (Nitroglycerin (Sl Tab) 0.4 Mg) 1 tab Q5M PRN SL ANGINA; Start at 14:30 Guaifenesin/ Dextromethorphan (Robitussin Dm Liquid Cup) 10 ml Q4H PRN PO COUGH ; Start 07/21/17 at 14:30 Diagnostic Test (Pha) (Accu-Chek) 1 ea 02 XX Last administered on 07/23/17 01: 12; Admin Dose 1 EA; Start 07/23/17 at 02:00 Miscellaneous Information 1 ea NOTE XX ; Start 07/22/17 at 10:00 Glucose (Glutose) 22.5 gm Q15M PRN PO DECREASED GLUCOSE; Start 07/22/17 at 10: 00 Dextrose (D50w Syringe) 25 ml Q15M PRN IV DECREASED GLUCOSE; Start 07/22/17 at 10:00 Dextrose (D50w Syringe) 50 ml Q15M PRN IV DECREASED GLUCOSE; Start 07/22/17 at 10:00 Glucagon (Glucagen) 1 mg Q15M PRN IM DECREASED GLUCOSE; Start 07/22/17 at 10:00 Glucose (Glutose) 15 gm Q15M PRN BUCCAL DECREASED GLUCOSE; Start 07/22/17 at 10 :00 Fluticasone Propionate (Flonase 0.05% Nasal) 1 spray BID NASAL Last administered on 07/24/17 07:55; Admin Dose 1 SPRAY; Start 07/22/17 at 12:30 Insulin Glargine (Lantus) 34 unit DAILY@08 SC ; Start 07/25/17 at 08:00 Potassium Chloride (Klor-Con 20) 40 meq Q4H PO Last administered on 07/24/17 13:18; Admin Dose 40 MEQ; Start 07/24/17 at 12:31; Stop 07/24/17 at 16:32 FANY SAMS MD Jul 24, 2017 15:20
[2017-07-24 19:41] VITALS: BP 124/79; RESP 20
[2017-07-24] MEDS: DOCUSATE SODIUM 100 MG CAP PO PRN (23:42)
[2017-07-25 01:26] VITALS: BP 141/78; RESP 18
[2017-07-25] MEDS: ACCU-CHEK XX SCH (01:57)
[2017-07-25] MEDS: PANTOPRAZOLE (EC) 40 MG TAB PO SCH (05:34)
[2017-07-25 07:30] VITALS: BP 94/59; RESP 16
[2017-07-25] MEDS ORDERED: INSULIN GLARGINE [LANtus] 3 ML PEN SC SCH (08:00)
[2017-07-25] MEDS: FLUTICASONE 0.05% 16 GM NAS SPRAY NASAL SCH (08:02)
[2017-07-25] MEDS: INSULIN ASPART [NOVOLOG] 3 ML PEN SC SCH ×3 (08:07→12:05)
--- NOTE | 2017-07-25 11:13 | CONS ---
Date/Time of Note Date/Time of Note DATE: 07/25/17 TIME: 11:11 Assessment/Plan Assessment/Plan Chief Complaint/Hosp Course 26-year-old single gentleman with a history of general good health. Roughly 1 week prior to admission he developed some abdominal nausea and pain. On or about July 17 he developed polyuria with polydipsia. He ultimately developed nausea and vomiting came to the emergency room where he was found to have be in diabetic ketoacidosis. Retrospectively notes a 20 pound weight loss in the last 2 months. He also notes a history of when eating greasy foods some upper abdominal pain that he says is both right and left. No known history of taking any medications he consumes only a small amount of alcohol documented below. He has not been on any medications associated with pancreatitis and has not been on any medications at all not been using any home remedies or vitamins. Problems: (1) Diabetic ketoacidosis Status: Acute Comment: Ketoacidosis is resolved. Adjusting his insulin to get his sugars under fair control. Please note with his insurance he will to select a primary care physician. Consider referral to [facility] or other as appropriate. His note his insurance does not cover insulin pen devices without a prior authorization process. I have given him samples of insulin pens to hold him over. We can do the prior authorization process on the weekend Qualifiers: Diabetes mellitus type: other specified (including JI) Diabetes mellitus complication detail: without coma Qualified Code: E13.10 - Diabetic ketoacidosis without coma associated with other specified diabetes mellitus (2) Acute pancreatitis Status: Acute Comment: As per primary care team. MRCP is negative Qualifiers: Pancreatitis type: unspecified pancreatitis type Acute pancreatitis complication: no infection or necrosis Qualified Code: K85.90 - Acute pancreatitis without infection or necrosis, unspecified pancreatitis type Consultation Date/Type/Reason Admit Date/Time Jul 21, 2017 at 12:32 Initial Consult Date 07/22/17 Type of Consultation: Endocrinology Reason for Consultation New onset diabetes mellitus type 1 with DKA. Referring Provider: SAUNDRA GONZALES 24 HR Interval Summary Free Text/Dictation Patient wants to know when he can go home. He please note he does not have a primary physician Constitutional: no complaints (Patient reports no complaints) Exam/Review of Systems Vital Signs Vitals Vital Signs Date Time Temp Pulse Resp B/P Pulse Ox O2 Delivery O2 Flow Rate FiO2 07/25/17 07:30 98.0 90 16 94/59 100 07/22/17 23:46 Room Air Intake and Output 07/24/17 07/24/17 07/25/17 15:00 23:00 07:00 Intake Total 1020 ml 1000 ml Balance 1020 ml 1000 ml Results No changes Result Diagram: 07/24/17 0603 07/24/17 0531 Results 24 hrs Laboratory Tests Test 07/24/17 11:51 07/24/17 17:21 07/24/17 20:25 07/25/17 01:54 Bedside Glucose 253 H 239 H 300 H 273 H Test 07/25/17 08:02 Bedside Glucose 255 H Medications Medications Current Medications Ondansetron HCl (Zofran Inj) 4 mg Q6H PRN IV NAUSEA AND/OR VOMITING Last administered on 07/22/17 04:13; Admin Dose 4 MG; Start 07/21/17 at 14:30 Acetaminophen (Tylenol Tab) 650 mg Q6H PRN PO PAIN LEVEL 1-3 OR FEVER; Start at 14:30 Acetaminophen/ Hydrocodone Bitart ([place] (5/325)) 1 tab Q6H PRN PO MODERATE PAIN LEVEL 4-6; Start 07/21/17 at 14:30 Morphine Sulfate (morphine) 2 mg Q4H PRN IV SEVERE PAIN LEVEL 7-10; Start 07/21 at 14:30 Docusate Sodium (Colace) 100 mg Q12H PRN PO CONSTIPATION Last administered on 23:42; Admin Dose 100 MG; Start 07/21/17 at 14:30 Magnesium Hydroxide (Milk Of Mag) 30 ml DAILY PRN PO CONSTIPATION Last administered on 07/24/17 07:55; Admin Dose 30 ML; Start 07/21/17 at 14:30 Pantoprazole (Protonix Tab) 40 mg DAILY@06 PO Last administered on 07/25/17 05 :34; Admin Dose 40 MG; Start 07/22/17 at 06:00 Lorazepam (Ativan) 0.5 mg Q6H PRN IV ANXIETY; Start 07/21/17 at 14:30 Hydralazine HCl (Apresoline) 10 mg Q6H PRN IV ELEVATED BLOOD PRESSURE; Start at 14:30 Nitroglycerin (Nitroglycerin (Sl Tab) 0.4 Mg) 1 tab Q5M PRN SL ANGINA; Start at 14:30 Guaifenesin/ Dextromethorphan (Robitussin Dm Liquid Cup) 10 ml Q4H PRN PO COUGH Last administered on 07/24/17 23:41; Admin Dose 10 ML; Start 07/21/17 at 14:30 Diagnostic Test (Pha) (Accu-Chek) 1 ea 02 XX Last administered on 07/25/17 01: 57; Admin Dose 1 EA; Start 07/23/17 at 02:00 Miscellaneous Information 1 ea NOTE XX ; Start 07/22/17 at 10:00 Glucose (Glutose) 22.5 gm Q15M PRN PO DECREASED GLUCOSE; Start 07/22/17 at 10: 00 Dextrose (D50w Syringe) 25 ml Q15M PRN IV DECREASED GLUCOSE; Start 07/22/17 at 10:00 Dextrose (D50w Syringe) 50 ml Q15M PRN IV DECREASED GLUCOSE; Start 07/22/17 at 10:00 Glucagon (Glucagen) 1 mg Q15M PRN IM DECREASED GLUCOSE; Start 07/22/17 at 10:00 Glucose (Glutose) 15 gm Q15M PRN BUCCAL DECREASED GLUCOSE; Start 07/22/17 at 10 :00 Fluticasone Propionate (Flonase 0.05% Nasal) 1 spray BID NASAL Last administered on 07/24/17 20:28; Admin Dose 1 SPRAY; Start 07/22/17 at 12:30 Insulin Glargine (Lantus) 38 unit DAILY@08 SC ; Start 07/26/17 at 08:00; Status UNV Insulin Glargine (Lantus) 4 unit ONCE ONCE SC ; Start 07/25/17 at 11:30; Stop 07/25/17 at 11:31; Status FANY WILSON MD Jul 25, 2017 11:13
[2017-07-25] MEDS ORDERED: INSULIN GLARGINE [LANtus] 3 ML PEN SC ONE (11:30)
--- NOTE | 2017-07-25 11:32 | PDOCDIS ---
Discharge Instructions CONDITION Patient Condition: Stable HOME CARE INSTRUCTIONS: Special Diet: carb controlled diet ACTIVITY: Activity Restrictions: Slowly Increase Activity FOLLOW UP/APPOINTMENTS Follow-up Plan Please take your medications as prescribed to follow-up with your regular doctor in the clinic in the next 1 week. SAUNDRA GONZALES Jul 25, 2017 11:32
[2017-07-25] MEDS ORDERED: NOVO3I SC (11:33)
[2017-07-25] MEDS ORDERED: LANT3I SC (11:33)
[2017-07-25] MEDS ORDERED: FLUT16SP17 NASAL (11:33)
[2017-07-25 11:48] LABS: BASOPHIL # 0.1 10^3/ul (0.0-0.1); BASOPHILS % 0.8 % (0.0-2.0); EOSINOPHILS # 0.3 10^3/ul (0.0-0.5); EOSINOPHILS % 4.4 % (0.0-7.0); HEMOGLOBIN 14.6 g/dl (14.0-18.0); LYMPHOCYTES # 1.7 10^3/ul (0.8-2.9); LYMPHOCYTES % 27.2 % (15.0-51.0); MEAN CORPUSCULAR HGB CONC 36.5 g/dl (32.0-37.0); MEAN CORPUSCULAR VOLUME 82.1 fl (82.0-101.0); MEAN PLATELET VOLUME 9.4 fl (7.4-10.4); MONOCYTE # 0.8 10^3/ul (0.3-0.9); MONOCYTES % 12.5 % (0.0-11.0); NEUTROPHIL # 3.3 10^3/ul (1.6-7.5); PLATELET COUNT 206 10^3/UL (140-415); RED BLOOD COUNT 4.87 10^6/ul (4.70-6.10); RED CELL DISTRIBUTION WIDTH 11.9 % (11.5-14.5); WHITE BLOOD COUNT 6.2 10^3/ul (4.8-10.8)
[2017-07-25 12:09] LABS: CALCIUM 9.1 mg/dl (8.4-10.2); CREATININE 0.65 mg/dl (0.61-1.24)
[2017-07-25] MEDS: DOCUSATE SODIUM 100 MG CAP PO PRN (12:11)
[2017-07-25] MEDS: MAGNESIUM HYDROXIDE 30ML CUP PO PRN (12:11)
[2017-07-25] MEDS ORDERED: INSULIN ASPART [NOVOLOG] 3 ML PEN SC SCH (12:15)
[2017-07-25 12:19] LABS: POTASSIUM 2.8 mmol/L (3.5-5.1)
--- NOTE | 2017-07-25 12:36 | DS ---
DATE OF ADMISSION: 07/21/2017 DATE OF DISCHARGE: 07/25/2017 HISTORY OF PRESENT ILLNESS: This is a 26-year-old male, originally admitted on 07/21/2017 being discharged home on 07/25/2017. The patient came in with abdominal pain, nausea, vomiting. He was found with diabetic ketoacidosis. He apparently had no prior history of any diabetes, who was admitted initially to intensive care unit. Put on DA protocol, given aggressive IV fluids and IV insulin. His hemoglobin A1c was found to be 11.0. He also pancreatitis. On admission, his lipase was 4,700. He was made n.p.o. and treated conservatively. Also had pain medicines, antiemetics and fluids. Over the course of hospital stay, his pancreatitis symptoms resolved. She was able tolerate a diet. Eventually, he was taken off a DKA protocol, switched over to subcu insulin. He was able to be seen by both the community nutrition educator and Endocrinology team. We made adjustments to his subcu insulin and medications. There was some question as to whether patient was a type 1 diabetic or type 2. In any event, we treated him the same way regarding subcutaneous insulin and education. He will need insulin pens, which has been provided to him by the digital learning platforms manager as his insurance does not cover this for now until he follows up with his primary care doctor and gets insurance authorization. In any event, sugars have improved. Pancreatitis has resolved. Vitals are stable. He is ambulating, tolerating a p.o. diet. DISCHARGE MEDICATIONS: He will be sent home on the following medications: 1. Lantus 38 units subcu q.a.m. 2. Aspart insulin 15 units subcu with meals. 3. Flonase nasal b.i.d. FOLLOWUP: He will need to followup with his regular doctor in the clinic in the next 1-2 weeks. FINAL DIAGNOSES: 1. Abdominal pain, nausea, vomiting secondary to diabetic ketoacidosis, now resolved. 2. Likely type 2 diabetes with A1c 11.0. 3. Pancreatitis. 4. Nasal decongestant. TIME SPENT DISCHARGING THE PATIENT: 40 minutes. Dictated By: Jono Vieira MD /[email or web address] /Document#: [id number]
[2017-07-25] MEDS: POTASSIUM CHLORIDE (SR) 20 MEQ TAB PO SCH ×2 (12:45→16:35)
[2017-07-25 13:18] VITALS: BP 117/72; RESP 16
--- NOTE | 2017-07-25 13:33 | RADRPT ---
PROCEDURE: US Lower extremity Venous. CLINICAL INDICATION: Rule out DVT TECHNIQUE: Multiple sonographic images of the right lower extremity deep venous system was obtaine d utilizing grayscale, color-flow, compressive sonography and doppler imaging with augmentation. Th e images were reviewed on a PACS workstation. COMPARISON: None FINDINGS: There is normal compressibility and flow within the by common femoral, deep femoral, superficial fem oral and popliteal veins. The veins in the calf were incompletely visualized. IMPRESSION: No sonographic evidence for deep venous thrombosis. RPTAT: QQ Physician Baltazar Date Time Electronically viewed and signed by Physician Baltazar on 07/25/2017 13:33 /
[2017-07-25 15:50] LABS: TB-NIL 0.03 IU/mL
[2017-07-25 17:17] LABS: ISLEAT CELL ANTIBODY TITER 10 JDF units; ISLET CELL ANTIBODY SCREEN POSITIVE (NEGATIVE)
[2017-07-26] MEDS ORDERED: INSULIN GLARGINE [LANtus] 3 ML PEN SC SCH (08:00)
== END 2017-07-25 16:55 | disposition home or self-care (01) | DRG 637 ==
LOC: FTE 08:02 → ICU 12:32 → MS2 07-23 01:00
PROVIDERS: ADMIT Internal Medicine; ATTEND Internal Medicine
DX: E13.10 Other specified diabetes mellitus with ketoacidosis without coma (principal); K85.90 Acute pancreatitis without necrosis or infection, unspecified; Z72.0 Tobacco use; Z79.4 Long term (current) use of insulin; Z83.3 Family history of diabetes mellitus
CPT/HCPCS: 36415; 36600; 74181; 76700; 80048; 80053; 80061; 81001; 82043; 82150; 82803; 82962; 83036; 83690; 83735; 84100; 84439; 84443; 84681; 85025; 85610; 85730; 86337; 86341; 86480; 86803; 87340; 90686; 93971; 96374; 96375; J1644; J1815; J2405; J3480; J7030; J7050

== ENCOUNTER → 2017-08-14 | Outpatient (CLI) | END | disposition home or self-care (01) ==

== ENCOUNTER 2017-11-23 16:23 | Emergency (ER) | END 2017-11-23 17:01 | disposition home or self-care (01) ==

== ENCOUNTER 2018-03-05 22:13 | Emergency (ER) | END 2018-03-06 01:21 | disposition home or self-care (01) ==

== ENCOUNTER 2018-06-05 11:07 | Emergency (ER) | END 2018-06-05 11:58 | disposition home or self-care (01) ==

== ENCOUNTER 2018-07-12 09:11 | Emergency (ER) | END 2018-07-12 09:57 | disposition home or self-care (01) ==

== ENCOUNTER 2018-07-14 10:14 | Emergency (ER) | END 2018-07-14 11:31 | disposition home or self-care (01) ==

== ENCOUNTER 2018-08-29 20:23 | Emergency (ER) | END 2018-08-29 22:05 | disposition home or self-care (01) ==

== ENCOUNTER 2018-09-30 15:13 | Emergency (ER) | END 2018-09-30 16:04 | disposition home or self-care (01) ==

== ENCOUNTER 2018-11-06 20:34 | Emergency (ER) | payer MEDICAID ==
[~2018-11-06] VITALS: Ht 177.8 cm; Wt 88.8 kg
[~2018-11-06 20:34] MED LIST changes: +ACET325T33 PO; -ACET500C5 PO; +CEPH-443 PO; +DOCU-144 PO; -ELEC100080 PO; +FLUT16SP17 NASAL; +HYDR-4011 PO; -IBUP800T25 PO; +INSU100C SQ; +INSU100I12 SQ; +INSU100I15 SC; +LANT3I SC; +NOVO3I SC; -OMEP20CA16 PO; -ONDA4TAB8 PO; +SULF1TAB31 PO; +SYRG1DIS22 MC; +SYRI-1417 MC; +TRAM50TA2 PO; -UDROBDM PO
[2018-11-06 20:40] VITALS: BP 155/92; PULSE 106; RESP 19; Ht 177.8 cm; Wt 88.8 kg
--- NOTE | 2018-11-06 22:42 | ERD ---
ER Documentation Chief Complaint Chief Complaint C/O MARITZA LEG TINGLING X3 WEEKS HPI 27-year-old male presents here to emergency department for complaints of right lower leg pain and swelling this been going on for 3 weeks, actually is having bilateral lower leg numbness and tingling sensation. Patient is type 1 diab etes. Patient states that he has been controlling his blood sugar poorly last month, but now has been controlling it well. Patient denies any fever or chills, denies any other symptoms, denies any trauma. ROS All systems reviewed and are negative except as per history of present illness. Medications Home Meds Active Scripts Insulin Glargine* (Lantus*) 100 Unit/Ml Soln, 28 UNIT SC DAILY, #1 VIAL Prov:MARTHA MAZA MD 09/30/18 Insulin Lispro (Humalog) 100 Unit/1 Ml Cartridge, 10 UNIT SQ q ac for 30 Days, EA 1 Refill Prov:MARTHA MAZA MD 09/30/18 Insulin Lispro (Humalog) 100 Unit/1 Ml Cartridge, 10 UNIT SQ WITH MEALS for 30 Days, EA Prov:MICK RIVERS MD 08/29/18 Insulin Glargine* (Lantus*) 100 Unit/Ml Soln, 38 UNIT SC QHS for 30 Days, VIAL Prov:MICK RIVERS MD 08/29/18 Hydrocodone/Acetaminophen ([place] 5-325 Tablet) 1 Each Tablet, 1 EACH PO Q6, #15 TAB Prov:PEG JUNIOR PA-C 07/14/18 Tramadol HCl (Tramadol HCl) 50 Mg Tablet, 50 MG PO Q4 PRN for PAIN, #20 TAB Prov:PARESH CHENG PA-C 07/12/18 Docusate Sodium* (Colace*) 100 Mg Capsule, 100 MG PO BID, #30 CAP Prov:PARESH CHENG PA-C 07/12/18 Sulfamethoxazole/Trimethoprim* (Bactrim Ds* Tablet) 1 Each Tablet, 1 TAB PO BID, #20 TAB Prov:PARESH CHENG PA-C 07/12/18 Cephalexin* (Keflex*) 500 Mg Capsule, 500 MG PO Q6, #40 CAP Prov:PARESH CHENGC 07/12/18 Insulin Lispro (Humalog) 100 Unit/1 Ml Cartridge, 10 UNIT SQ AC MEALS for 30 Days, EA Prov:RYAN PRUETT-C 06/05/18 Insulin Glargine* (Lantus*) 100 Unit/Ml Soln, 38 UNIT SC AC BREAKFAST for 30 Days, #1 VIAL Prov:FLYNNRYAN BECKETTC 06/05/18 Syrge-Ndl,Ins 0.3 ml Half Rayo (Insulin Syringe) 1 Each Disp.syrin, 1 EACH MC, #30 Prov:PARESH CHENG-C 03/06/18 Syring W-Ndl,Disp,Insul,0.5 ml (Easy Comfort Insulin Syringe) 1 Each Disp.syrin, 1 EACH MC, #30 Prov:PARESH CHENG-C 03/06/18 Insulin Lispro (Humalog) 100 Unit/1 Ml Cartridge, 100 UNIT SQ BEFORE MEALS for 30 Days, EA Prov:PARESH CHENGC 03/05/18 Insulin Glargine* (Lantus*) 100 Unit/Ml Soln, 38 UNIT SC DAILY, #1 VIAL Prov:PARESH CHENG-C 03/05/18 Acetaminophen* (Tylenol*) 325 Mg Tablet, 1 TAB PO Q6 PRN for PAIN AND OR ELEVATED TEMP, #20 TAB Prov:ADAMNAY C 11/23/17 Insulin Glargine,Hum.rec.anlog (Lantus Solostar) 100 Units/Ml Pen, 38 UNIT SC QHS for 30 Days, #1 SYR Prov:ADAMNAY C 11/23/17 Insulin Lispro (Humalog Kwikpen U-100) 100 Unit/1 Ml Insuln.pen, 10 UNIT SQ AC MEALS for 30 Days, EA Prov:ADAMNAY C 11/23/17 Insulin Glargine* (Lantus*) 100 Unit/Ml Soln, 38 UNIT SC DAILY@08, #1 BOTTLE 4 Refills Prov:SAUNDRA GONZALES 07/25/17 Insulin Aspart* (Novolog Insulin Pen*) 100 Unit/Ml Soln, 15 UNIT SC WITH MEALS, #1 BOTTLE 4 Refills Prov:SAUNDRA GONZALES S. 07/25/17 Fluticasone Propionate* (Fluticasone Propionate* Nasal) 50 Mcg/[place] - 16 Gm [place].susp, 1 SPRAY NASAL BID, #1 BOTTLE Prov:SAUNDRA GONZALES S. 07/25/17 Allergies Allergies: Coded Allergies: No Known Allergy (Unverified , 09/30/18) PMhx/Soc Medical and Surgical Hx: pt denies Surgical Hx Anesthesia Reaction: No Hx Neurological Disorder: No Hx Respiratory Disorders: No Hx Cardiac Disorders: No Hx Psychiatric Problems: No Hx Miscellaneous Medical Probl: Yes (Type 1 diabetes) Hx Alcohol Use: No Hx Substance Use: No Hx Tobacco Use: No Smoking Status: Former smoker FmHx Family History: No diabetes, No coronary disease, No other Physical Exam Vitals Vital Signs Date Temp Pulse Resp B/P (MAP) Pulse Ox O2 O2 Flow FiO2 Time Delivery Rate 11/06/18 98.7 106 19 155/92 97 20:40 (113) Physical Exam GENERAL: The patient is well developed and appropriate for usual state of health, in no apparent distress. CHEST: Clear to auscultation bilaterally. There are no rales, wheezes or rhonchi. HEART: Regular rate and rhythm. No murmurs, clicks, rubs or gallops. No S3 or S4. ABDOMEN: Soft, nontender and nondistended. Good bowel sounds. No rebound or guarding. No gross peritonitis. No gross organomegaly or masses. No Elkins sign or McBurney point tenderness. BACK: No midline or flank tenderness. EXTREMITIES: Sensation in bilateral lower extremities, mild tenderness on palpation in the right lower leg, no erythema mild swelling noted equal pulses bilaterally. There is no peripheral clubbing, cyanosis or edema. No focal swelling or erythema. Full range of motion. Grossly neurovascularly intact. NEURO: Alert and oriented. Cranial nerves 2-12 intact. Motor strength in all 4 extremities with 5/5 strength. Sensation grossly intact. Normal speech and gait. SKIN: There is no apparent rash or petechia. The skin is warm and dry. HEMATOLOGIC AND LYMPHATIC: There is no evidence of excessive bruising or lymphedema. No gross cervical, axillary, or inguinal lymphadenopathy. Results 24 hrs PROCEDURE: US Lower extremity Venous. CLINICAL INDICATION: Right leg edema TECHNIQUE: Multiple sonographic images of the right lower extremity deep venous system was obtained utilizing grayscale, color-flow, compressive sonography and doppler imaging with augmentation. The images were reviewed on a PACS workstation. COMPARISON: US EXTREMITY 07/25/2017 FINDINGS: There is normal compressibility and flow within the right common femoral, femoral, posterior tibial, peroneal and popliteal veins. RPTAT: AA IMPRESSION: No sonographic evidence for deep venous thrombosis. .Abrahan Mckinley MD, MD Date Time Electronically viewed and signed by .Abrahan Mckinley MD, on 11/06/2018 22:53 .S/ CC: GREGOR SHEFFIELD MATERIAL CONTROL MANAGER [id number] Procedures/MDM Medical Decision Making: Patient's pain is most likely consistent with a leg contusion or a sprain, and numbness tingling most likely consistent with diabetic neuropathy. There is no suspicion for neurovascular compromise. Patient has intact sensation and circulation of the affected extremity. There is low suspicion for septic arthritis. Patient does not have any fever. No DVT noted. Disposition: Home. Patient is given prescription for ibuprofen for pain, gabapentin. Patient was advised to elevate the affected area and apply ice on affected area. Patient was advised that if symptoms are worse, numbness, tingling, high fever, unable to move joint, worsening symptoms, to return to emergency department immediately. Otherwise, patient is advised to follow up with the primary care doctor in 5-7 days for reevaluation of symptoms. Disclaimer: Inadvertent spelling and grammatical errors are likely due to EHR/dictation software use and do not reflect on the overall quality of patient care. Also, please note that the electronic time recorded on this note does not necessarily reflect the actual time of the patient encounter. Departure Diagnosis: Primary Impression: Pain of left leg Additional Impression: Diabetic neuropathy Diabetes mellitus type: type 1 Diabetes mellitus complication detail: diabetic mononeuropathy Qualified Codes: E10.41 - Type 1 diabetes mellitus with diabetic mononeuropathy Condition: Stable Patient Instructions: Neuropathy, Peripheral Additional Instructions: Patient is given prescription for ibuprofen for pain, gabapentin. Patient was advised to elevate the affected area and apply ice on affected area. Patient was advised that if symptoms are worse, numbness, tingling, high fever, unable to move joint, worsening symptoms, to return to emergency department immediately. Otherwise, patient is advised to follow up with the primary care doctor in 5-7 days for reevaluation of symptoms. GREGOR SHEFFIELD NP Nov 06, 2018 22:42
[2018-11-06] MEDS ORDERED: IBUP-1542 PO (23:23)
[2018-11-06] MEDS ORDERED: GABA300C16 PO (23:23)
[2018-12-01] MEDS ORDERED: LANT3I SC (20:59)
[2018-12-01] MEDS ORDERED: INSU100C SQ (20:59)
== END 2018-11-06 23:31 | disposition home or self-care (01) ==
LOC: FTE 20:34
DX: M79.605 Pain in left leg (principal); E10.41 Type 1 diabetes mellitus with diabetic mononeuropathy; Z79.4 Long term (current) use of insulin; Z87.891 Personal history of nicotine dependence
CPT/HCPCS: 93971; Z7502

== ENCOUNTER 2019-01-02 19:20 | Emergency (ER) | payer MEDICAID ==
[~2019-01-02] VITALS: Ht 177.8 cm; Wt 89.6 kg
[~2019-01-02 19:20] MED LIST changes: +GABA300C16 PO; +IBUP-1542 PO
[2019-01-02 19:25] VITALS: Ht 177.8 cm; Wt 89.6 kg
[2019-01-02] MEDS ORDERED: KETOROLAC 30 MG INJ IM STA (21:31)
[2019-01-02] MEDS ORDERED: AMOX1TAB10 PO (21:33)
[2019-01-02] MEDS ORDERED: D-ME473S2 PO (21:36)
[2019-01-02] MEDS ORDERED: PRED20TA PO (21:36)
--- NOTE | 2019-01-02 21:47 | ERD ---
ER Documentation Chief Complaint Chief Complaint NASAL CONGESTION X 2 DAYS HPI 28-year-old type I diabetic male presents with 2-day history of nasal congestion, ear pain, and sinus pain. He also states his been having fevers. Denies any history of sinusitis but he has gotten ear infections in the past. Not taking any medications. Denies nausea, headaches, polyuria, polydipsia, vomiting, diarrhea. No treatments. History of type 1 diabetes. Denies allergies. ROS All systems reviewed and are negative except as per history of present illness. Medications Home Meds Active Scripts Dextromethorphan Hb-Promethazine Hcl* (Promethazine DM* Syrup) 473 Ml Syrup, 5 ML PO Q6 PRN for COUGH, #4 OZ Prov:ADELITA IBARRA 01/02/19 Amoxicillin/Potassium Clav (Amox-Clav 875-125 mg Tablet) 875-125 mg Tab, 1 TAB PO BID for otitis media for 7 Days, #14 TAB Prov:ADELITA IBARRA 01/02/19 Insulin Lispro (Humalog) 100 Unit/1 Ml Cartridge, 10 UNIT SQ TIDM A for diabetes, #2 EA Prov:OLIVERIO PARKINSON DO 12/01/18 Insulin Glargine* (Lantus*) 100 Unit/Ml Soln, 38 UNIT SC DAILY, #2 VIAL Prov:OLIVERIO PARKINSON DO 12/01/18 Gabapentin* (Gabapentin*) 300 Mg Capsule, 300 MG PO QHS, #30 CAP Prov:GREGOR SHEFFIELD ORDER PICKER 11/06/18 Ibuprofen* (Motrin*) 600 Mg Tab, 600 MG PO Q6H PRN for PAIN AND OR ELEVATED TEMP, #30 TAB Prov:GREGOR SHEFFIELD ORDER PICKER 11/06/18 Insulin Glargine* (Lantus*) 100 Unit/Ml Soln, 28 UNIT SC DAILY, #1 VIAL Prov:MARTHA MAZA MD 09/30/18 Insulin Lispro (Humalog) 100 Unit/1 Ml Cartridge, 10 UNIT SQ q ac for 30 Days, EA 1 Refill Prov:MARTHA MAZA MD 09/30/18 Insulin Lispro (Humalog) 100 Unit/1 Ml Cartridge, 10 UNIT SQ WITH MEALS for 30 Days, EA Prov:MICK RIVERS MD 08/29/18 Insulin Glargine* (Lantus*) 100 Unit/Ml Soln, 38 UNIT SC QHS for 30 Days, VIAL Prov:MICK RIVERS MD 08/29/18 Hydrocodone/Acetaminophen ([place] 5-325 Tablet) 1 Each Tablet, 1 EACH PO Q6, #15 TAB Prov:PEG JUNIORC 07/14/18 Tramadol HCl (Tramadol HCl) 50 Mg Tablet, 50 MG PO Q4 PRN for PAIN, #20 TAB Prov:PARESH CHENGC 07/12/18 Docusate Sodium* (Colace*) 100 Mg Capsule, 100 MG PO BID, #30 CAP Prov:PARESH CHENG-C 07/12/18 Sulfamethoxazole/Trimethoprim* (Bactrim Ds* Tablet) 1 Each Tablet, 1 TAB PO BID, #20 TAB Prov:PARESH CHENG-C 07/12/18 Cephalexin* (Keflex*) 500 Mg Capsule, 500 MG PO Q6, #40 CAP Prov:PARESH CHENG PA-C 07/12/18 Insulin Lispro (Humalog) 100 Unit/1 Ml Cartridge, 10 UNIT SQ AC MEALS for 30 Days, EA Prov:RYAN MORA PA-C 06/05/18 Insulin Glargine* (Lantus*) 100 Unit/Ml Soln, 38 UNIT SC AC BREAKFAST for 30 Days, #1 VIAL Prov:RYAN MORA PA-C 06/05/18 Syrge-Ndl,Ins 0.3 ml Half Rayo (Insulin Syringe) 1 Each Disp.syrin, 1 EACH MC, #30 Prov:PARESH CHENG PA-C 03/06/18 Syring W-Ndl,Disp,Insul,0.5 ml (Easy Comfort Insulin Syringe) 1 Each Disp.syrin, 1 EACH MC, #30 Prov:PARESH CHENGC 03/06/18 Insulin Lispro (Humalog) 100 Unit/1 Ml Cartridge, 100 UNIT SQ BEFORE MEALS for 30 Days, EA Prov:PARESH CHENG-C 03/05/18 Insulin Glargine* (Lantus*) 100 Unit/Ml Soln, 38 UNIT SC DAILY, #1 VIAL Prov:PARESH CHENG PA-C 03/05/18 Acetaminophen* (Tylenol*) 325 Mg Tablet, 1 TAB PO Q6 PRN for PAIN AND OR ELEVATED TEMP, #20 TAB Prov:NAY MEDINA 11/23/17 Insulin Glargine,Hum.rec.anlog (Lantus Solostar) 100 Units/Ml Pen, 38 UNIT SC QHS for 30 Days, #1 SYR Prov:NAY MEDINA 11/23/17 Insulin Lispro (Humalog Kwikpen U-100) 100 Unit/1 Ml Insuln.pen, 10 UNIT SQ AC MEALS for 30 Days, EA Prov:NAY MEDINA 11/23/17 Insulin Glargine* (Lantus*) 100 Unit/Ml Soln, 38 UNIT SC DAILY@08, #1 BOTTLE 4 Refills Prov:RAKYLESAUNDRA S. 07/25/17 Insulin Aspart* (Novolog Insulin Pen*) 100 Unit/Ml Soln, 15 UNIT SC WITH MEALS, #1 BOTTLE 4 Refills Prov:RAHI,SAUNDRA S. 07/25/17 Fluticasone Propionate* (Fluticasone Propionate* Nasal) 50 Mcg/[place] - 16 Gm [place].susp, 1 SPRAY NASAL BID, #1 BOTTLE Prov:RAHI,SAUNDRA S. 07/25/17 Allergies Allergies: Coded Allergies: No Known Allergy (Unverified , 09/30/18) PMhx/Soc Medical and Surgical Hx: pt denies Medical Hx, pt denies Surgical Hx Anesthesia Reaction: No Hx Neurological Disorder: No Hx Respiratory Disorders: No Hx Cardiac Disorders: No Hx Psychiatric Problems: No Hx Miscellaneous Medical Probl: Yes (Type 1 diabetes) Hx Alcohol Use: No Hx Substance Use: No Hx Tobacco Use: No Smoking Status: Never smoker FmHx Family History: diabetes; No coronary disease, No other Physical Exam Vitals Vital Signs Date Temp Pulse Resp B/P (MAP) Pulse Ox O2 O2 Flow FiO2 Time Delivery Rate 01/02/19 98.6 105 18 139/86 98 Room Air 21:57 (103) 01/02/19 100.1 131 26 159/83 97 19:25 (108) Physical Exam Const: No acute distress Head: Atraumatic Eyes: Normal Conjunctiva ENT: Normal External Ears, Nose and Mouth. TMs are erythematous and bulging bilaterally. Canals are clear with no exudates. Tonsils are nonerythematous or edematous bilaterally without exudates. Uvula is midline. There are no tonsillar or peritonsillar abscess noted. Neck: Full range of motion. No meningismus. Resp: Clear to auscultation bilaterally Cardio: Regular rate and rhythm, no murmurs Abd: Soft, non tender, non distended. Normal bowel sounds Skin: No petechiae or rashes Back: No midline or flank tenderness Ext: No cyanosis, or edema Neur: Awake and alert Psych: Normal Mood and Affect Results 24 hrs Laboratory Tests Test 01/02/19 21:48 Bedside Glucose 191 mg/dL Current Medications Medications Dose Sig/Rasheed Start Time Status Last (Trade) Ordered Route PRN Stop Time Admin Dose Reason Admin Prednisone 40 mg ONCE ONCE 01/02/19 DC 01/02/19 (Prednisone) PO 22:00 21:39 01/02/19 22:00 Ketorolac 30 mg ONCE STAT 01/02/19 DC 01/02/19 Tromethamine IM 21:31 21:40 (Toradol) 01/02/19 21:32 Procedures/MDM 28-year-old type I diabetic male presents with 2-day history of nasal congestion, ear pain, and sinus pain. He also states his been having fevers. Denies any history of sinusitis but he has gotten ear infections in the past. Not taking any medications. Denies nausea, headaches, polyuria, polydipsia, vomiting, diarrhea. No treatments. History of type 1 diabetes. Denies allergies. I have low suspicion for mastoiditis due to lack of erythema, edema, or ttp over mastoid area. Patient given Toradol and 1 dose of prednisone in the ER. In the edition patient's glucose is 191. I discussed the results with Dr. Demarco and he said he was not concerning and patient was fit for discharge. I have low suspicion for intercranial abscess due to lack of LACEY or focal neurological findings. I have low suspicion of TM rupture or trauma based on lack of hearing loss, vertigo, and PE findings. Most likely diagnosis is acute otitis media. Patient given Rx for promethazine for cough. as well as Augmentin . Based on these findings I do not feel that additional labs or imaging is anastasiia downs. Patient was discharged with strict ER precautions. Patient was recommended to follow-up with PMD. All questions answered at discharge. Departure Diagnosis: Primary Impression: Otitis media Otitis media type: unspecified Chronicity: acute Qualified Codes: H66.90 - Otitis media, unspecified, unspecified ear Condition: Stable Patient Instructions: Otitis Media, Abx Tx (Adult) Referrals: [facility] YOU HAVE RECEIVED A MEDICAL SCREENING EXAM AND THE RESULTS INDICATE THAT YOU DO NOT HAVE A CONDITION THAT REQUIRES URGENT TREATMENT IN THE EMERGENCY DEPARTMENT. FURTHER EVALUATION AND TREATMENT OF YOUR CONDITION CAN WAIT UNTIL YOU ARE SEEN IN YOUR DOCTORS OFFICE WITHIN THE NEXT 1-2 DAYS. IT IS YOUR RESPONSIBILITY TO MAKE AN APPOINTMENT FOR FOLOW-UP CARE. IF YOU HAVE A PRIMARY DOCTOR --you should call your primary doctor and schedule an appointment IF YOU DO NOT HAVE A PRIMARY DOCTOR YOU CAN CALL OUR PHYSICIAN REFERRAL HOTLINE AT IF YOU CAN NOT AFFORD TO SEE A PHYSICIAN YOU CAN CHOSE FROM THE FOLLOWING [facility] [address] [facility]. [facility] [address] [facility]. [facility] [address] [facility] [facility] [address] [facility]. [facility] [address] [facility]. [facility]. [address] Additional Instructions: FOLLOW UP WITH YOUR PRIMARY CARE PHYSICIAN TOMORROW.Return to this facility if you are not improving as expected. ADELITA IBARRA Jan 02, 2019 21:47
[2019-01-02 21:57] VITALS: BP 139/86; PULSE 105; RESP 18
[2019-01-02] MEDS ORDERED: predniSONE 20 MG TAB PO ONE (22:00)
== END 2019-01-02 21:35 | disposition home or self-care (01) ==
LOC: FTE 19:20
DX: H66.93 Otitis media, unspecified, bilateral (principal); E10.9 Type 1 diabetes mellitus without complications; Z79.4 Long term (current) use of insulin
CPT/HCPCS: 82962; 96372; J1885; J7512; Z7502

== ENCOUNTER 2019-02-06 19:32 | Emergency (ER) | payer MEDICAID ==
[~2019-02-06] VITALS: Ht 177.8 cm; Wt 88.0 kg
[~2019-02-06 19:32] MED LIST changes: +AMOX1TAB10 PO; +D-ME473S2 PO
[2019-02-06 19:34] VITALS: Ht 177.8 cm; Wt 88.0 kg
[2019-02-06] MEDS ORDERED: SOD CHLORIDE 0.9% 880 ML IV ONE (21:00)
[2019-02-06] MEDS ORDERED: LACTATED RINGER'S 880 ML IV ONE (21:30)
[2019-02-06] MEDS ORDERED: INSU100C SQ (21:53)
[2019-02-06] MEDS ORDERED: LANT3I SC (21:53)
--- NOTE | 2019-02-06 21:58 | ERD ---
ER Documentation Chief Complaint Chief Complaint REQUESTING REFILL FOR INSULINE - NO OTHER COMPLAINTS HPI 28-year-old insulin-dependent diabetic who presents to the emergency room asking for refill of his medications. However the patient's Accu-Chek at triage read critical high. The patient states that he ran out of his medications. He has not had them for at least 24 hours. He denies any polyuria, polydipsia, polyphagia. No other complaints. No fevers chills chest pain or shortness of breath. ROS All systems reviewed and are negative except as per history of present illness. Medications Home Meds Active Scripts Insulin Glargine* (Lantus*) 100 Unit/Ml Soln, 38 UNIT SC QHS for 30 Days, VIAL 1 Refill Prov:MICK RIVERS MD 02/06/19 Insulin Lispro (Humalog) 100 Unit/1 Ml Cartridge, 10 UNIT SQ AC A for 30 Days, EA 1 Refill Prov:MICK RIVERS MD 02/06/19 Dextromethorphan Hb-Promethazine Hcl* (Promethazine DM* Syrup) 473 Ml Syrup, 5 ML PO Q6 PRN for COUGH, #4 OZ Prov:ADELITA IBARRA 01/02/19 Amoxicillin/Potassium Clav (Amox-Clav 875-125 mg Tablet) 875-125 mg Tab, 1 TAB PO BID for otitis media for 7 Days, #14 TAB Prov:ADELITA IBARRA 01/02/19 Insulin Lispro (Humalog) 100 Unit/1 Ml Cartridge, 10 UNIT SQ TIDM A for diabetes, #2 EA Prov:OLIVERIO PARKINSON DO 12/01/18 Insulin Glargine* (Lantus*) 100 Unit/Ml Soln, 38 UNIT SC DAILY, #2 VIAL Prov:OLIVERIO PARKINSON DO 12/01/18 Gabapentin* (Gabapentin*) 300 Mg Capsule, 300 MG PO QHS, #30 CAP Prov:GREGOR [place] [employer]UPAL DEVELOPER 11/06/18 Ibuprofen* (Motrin*) 600 Mg Tab, 600 MG PO Q6H PRN for PAIN AND OR ELEVATED TEMP, #30 TAB Prov:GREGOR [place] NP 11/06/18 Insulin Glargine* (Lantus*) 100 Unit/Ml Soln, 28 UNIT SC DAILY, #1 VIAL Prov:MARTHA MZAA MD 09/30/18 Insulin Lispro (Humalog) 100 Unit/1 Ml Cartridge, 10 UNIT SQ q ac for 30 Days, EA 1 Refill Prov:MARTHA MAZA MD 09/30/18 Insulin Lispro (Humalog) 100 Unit/1 Ml Cartridge, 10 UNIT SQ WITH MEALS for 30 Days, EA Prov:MICK RIVERS MD 08/29/18 Insulin Glargine* (Lantus*) 100 Unit/Ml Soln, 38 UNIT SC QHS for 30 Days, VIAL Prov:MICK RIVERS MD 08/29/18 Hydrocodone/Acetaminophen ([place] 5-325 Tablet) 1 Each Tablet, 1 EACH PO Q6, #15 TAB Prov:PEG JUNIOR PA-C 07/14/18 Tramadol HCl (Tramadol HCl) 50 Mg Tablet, 50 MG PO Q4 PRN for PAIN, #20 TAB Prov:PARESH CHENG PA-C 07/12/18 Docusate Sodium* (Colace*) 100 Mg Capsule, 100 MG PO BID, #30 CAP Prov:PARESH CHENG PA-C 07/12/18 Sulfamethoxazole/Trimethoprim* (Bactrim Ds* Tablet) 1 Each Tablet, 1 TAB PO BID, #20 TAB Prov:PARESH CHENG PA-C 07/12/18 Cephalexin* (Keflex*) 500 Mg Capsule, 500 MG PO Q6, #40 CAP Prov:PARESH CHENG PA-C 07/12/18 Insulin Lispro (Humalog) 100 Unit/1 Ml Cartridge, 10 UNIT SQ AC MEALS for 30 Days, EA Prov:RYAN MORA PA-C 06/05/18 Insulin Glargine* (Lantus*) 100 Unit/Ml Soln, 38 UNIT SC AC BREAKFAST for 30 Days, #1 VIAL Prov:RYAN MORA PA-C 06/05/18 Syrge-Ndl,Ins 0.3 ml Half Rayo (Insulin Syringe) 1 Each Disp.syrin, 1 EACH MC, #30 Prov:PARESH CHENG PA-C 03/06/18 Syring W-Ndl,Disp,Insul,0.5 ml (Easy Comfort Insulin Syringe) 1 Each Disp.syrin, 1 EACH MC, #30 Prov:PARESH CHENG PA-C 03/06/18 Insulin Lispro (Humalog) 100 Unit/1 Ml Cartridge, 100 UNIT SQ BEFORE MEALS for 30 Days, EA Prov:PARESH CHENG PA-C 03/05/18 Insulin Glargine* (Lantus*) 100 Unit/Ml Soln, 38 UNIT SC DAILY, #1 VIAL Prov:PARESH CHENG PA-C 03/05/18 Acetaminophen* (Tylenol*) 325 Mg Tablet, 1 TAB PO Q6 PRN for PAIN AND OR ELEVATED TEMP, #20 TAB Prov:NAY MEDINA Toma 11/23/17 Insulin Glargine,Hum.rec.anlog (Lantus Solostar) 100 Units/Ml Pen, 38 UNIT SC QHS for 30 Days, #1 SYR Prov:NAY MEDINA Toma 11/23/17 Insulin Lispro (Humalog Kwikpen U-100) 100 Unit/1 Ml Insuln.pen, 10 UNIT SQ AC MEALS for 30 Days, EA Prov:NAY MEDINA C 11/23/17 Insulin Glargine* (Lantus*) 100 Unit/Ml Soln, 38 UNIT SC DAILY@08, #1 BOTTLE 4 Refills Prov:RAGORDON WRIGHTSAUNDRA S. 07/25/17 Insulin Aspart* (Novolog Insulin Pen*) 100 Unit/Ml Soln, 15 UNIT SC WITH MEALS, #1 BOTTLE 4 Refills Prov:RAHI,SAUNDRA S. 07/25/17 Fluticasone Propionate* (Fluticasone Propionate* Nasal) 50 Mcg/[place] - 16 Gm [place].susp, 1 SPRAY NASAL BID, #1 BOTTLE Prov:RAKYLESAUNDRA S. 07/25/17 Allergies Allergies: Coded Allergies: No Known Allergy (Unverified , 09/30/18) PMhx/Soc Anesthesia Reaction: No Hx Neurological Disorder: No Hx Respiratory Disorders: No Hx Cardiac Disorders: No Hx Psychiatric Problems: No Hx Miscellaneous Medical Probl: Yes (Type 1 diabetes) Hx Alcohol Use: No Hx Substance Use: No Hx Tobacco Use: No Smoking Status: Never smoker FmHx Family History: diabetes Physical Exam Vitals Vital Signs Date Temp Pulse Resp B/P (MAP) Pulse Ox O2 O2 Flow FiO2 Time Delivery Rate 02/06/19 98.0 84 17 138/86 95 Room Air 20:50 (103) 02/06/19 99.9 113 17 141/71 95 19:34 (94) Physical Exam General: Well developed, well nourished, no acute distress Head: Normocephalic, atraumatic. Eyes: Pupils equally reactive, EOM intact ENT: Moist mucous membranes Neck: Supple, no lymphadenopathy Respiratory: Lungs clear bilaterally, no distress Cardiovascular: RRR, no murmurs, rubs, or gallops Abdominal: Soft, non-tender, non-distended, no peritoneal signs : Deferred MSK: No edema, no unilateral swelling, 5/5 strength Neurologic: Alert and oriented, moving all extremities, normal speech, no focal weakness, no cerebellar signs Skin: No rash Psych: Normal mood Result Diagram: 02/06/19204402/06/192044 Results 24 hrs Laboratory Tests Test 02/06/19 19:44 02/06/19 20:41 02/06/19 20:45 02/06/19 21:43 Bedside Glucose > 595 mg/dL > 595 mg/dL Urine Color COLORLESS Urine Clarity CLEAR Urine pH 5.0 Urine Specific 1.024 [place] Urine Ketones 1+ mg/dL Urine Nitrite NEGATIVE mg/dL Urine Bilirubin NEGATIVE mg/dL Urine NEGATIVE mg/dL Urobilinogen Urine Leukocyte NEGATIVE Brice/ul Esterase Urine Hemoglobin NEGATIVE mg/dL Urine Glucose 3+ mg/dL Urine Total NEGATIVE mg/dl Protein White Blood 8.0 10^3/ul Count Red Blood Count 5.12 10^6/ul Hemoglobin 14.7 g/dl Hematocrit 42.6 % Mean Corpuscular 83.2 fl Volume Mean Corpuscular 28.7 pg Hemoglobin Mean Corpuscular 34.5 g/dl Hemoglobin Zoe nt Red Cell 11.8 % Distribution Width Platelet Count 266 10^3/UL Mean Platelet 9.8 fl Volume Immature 0.600 % Granulocytes % Neutrophils % 65.7 % Lymphocytes % 24.7 % Monocytes % 7.6 % Eosinophils % 0.7 % Basophils % 0.7 % Nucleated Red 0.0 /100WBC Blood Cells % Immature 0.050 10^3/ul Granulocytes # Neutrophils # 5.3 10^3/ul Lymphocytes # 2.0 10^3/ul Monocytes # 0.6 10^3/ul Eosinophils # 0.1 10^3/ul Basophils # 0.1 10^3/ul Nucleated Red 0.0 10^3/ul Blood Cells # Blood Gas Blood venous Specimen Source Arterial Blood 02/06/2019 8:40: Date Drawn 34 PM Arterial Blood VENOUS LINE Gas Puncture Site Jey Test N/A Venous Blood pH 7.357 Venous Blood 43.0 mmHG pCO2 (Temp Corrected) Venous Blood pO2 37.4 mmHG (Temp Corrected) Venous Blood 23.6 mmol/L HCO3 Venous Blood 70.3 mmHG Oxygen Saturation Venous Blood -2.0 mmol/L Base Excess Venous Blood 15.6 g/dl Total Hemoglobin Venous Blood 70.2 % Oxyhemoglobin Venous Blood 0.1 % Methemoglobin Carboxyhemoglobi 0.1 % n Blood Gas 37.0 C Temperature Blood Gas ROOM AIR Modality FiO2 21.0 % Blood Gas UP Notified Whom Blood Gas 02/06/2019 8:56: Notified Time 19 PM Sodium Level 128 mmol/L Potassium Level 5.1 mmol/L Chloride Level 88 mmol/L Carbon Dioxide 25 mmol/L Level Anion Gap 15 Blood Urea 22 mg/dl Nitrogen Creatinine 1.22 mg/dl Est Glomerular > 60 mL/min Filtrat Rate mL/min Glucose Level 836 mg/dl Calcium Level 8.9 mg/dl Phosphorus Level 4.6 mg/dl Magnesium Level 1.9 mg/dl Current Medications Medications Dose Sig/Rasheed Start Time Status Last (Trade) Ordered Route PRN Stop Time Admin Dose Reason Admin Sodium 880 ml @ ONCE ONCE 02/06/19 02/06/19 Chloride 880 mls/hr IV 21:00 21:05 02/06/19 21:59 Lactated 880 ml @ ONCE ONCE 02/06/19 02/06/19 Ringer's 880 mls/hr IV 21:30 21:38 02/06/19 22:29 Insulin 10 unit ONCE ONCE 02/06/19 02/06/19 Human SC 22:00 21:46 Lispro 02/06/19 22:01 (Humalog) Diagnostic 1 ea 2 HRS AFTER 02/07/19 Test (Pha) HUMALOG ONCE 00:00 (Accu-Chek) XX 02/07/19 00:01 Procedures/MDM LAB INTERPRETATION: I reviewed the laboratory testing and it shows significant hyperglycemia, borderline anion gap of 15, 1+ ketones, normal pH MEDICAL DECISION MAKING: Patient presents with significant hyperglycemia secondary to medication noncompliance. The patient is otherwise extremely well-appearing in [facility]. The patient's laboratory testing shows possible early evidence of diabetic keto acidosis but a normal pH. Anion gap is only 15. The patient has 1+ ketones. I do believe that he will correct quickly with IV fluids and subcutaneous insulin. I do not feel the patient warrants insulin drip. I had a conversation with the patient and he feels very strongly about not being hospitalized. I believe it would be appropriate to provide the patient with IV fluids, subcutaneous insulin and repeat chemistry profile. If the patient's anion gap is improving the patient can be safely discharged home. No evidence of infarction or ischemia or infection. ER COURSE: * Patient provided with bolus of normal saline and lactated Ringer's. 10 units of subcutaneous Humalog provided * Repeat chemistry is pending. Patient endorsed oncoming provider. If any gap is closing in laboratory testing is reassuring patient can be safely discharged home. CONSULTATION: None DISPOSITION PLAN: The patient does not have an identifiable emergent medical condition that warrants inpatient hospitalization at this time. The patient is deemed safe for discharge with outpatient follow-up. We discussed follow up with the patient's primary care doctor within 24 to 48 hours as needed. We also discussed return to the emergency room for worsening symptoms or worsening condition. Outpatient referral: None required Discharge Medications: Humalog 10 units with meals Lantus 38 units in the evening Departure Diagnosis: Primary Impression: Hyperglycemia Condition: Stable Patient Instructions: Hyperglycemia (High Blood Sugar) Referrals: [facility] YOU HAVE RECEIVED A MEDICAL SCREENING EXAM AND THE RESULTS INDICATE THAT YOU DO NOT HAVE A CONDITION THAT REQUIRES URGENT TREATMENT IN THE EMERGENCY DEPARTMENT. FURTHER EVALUATION AND TREATMENT OF YOUR CONDITION CAN WAIT UNTIL YOU ARE SEEN IN YOUR DOCTORS OFFICE WITHIN THE NEXT 1-2 DAYS. IT IS YOUR RESPONSIBILITY TO MAKE AN APPOINTMENT FOR FOLOW-UP CARE. IF YOU HAVE A PRIMARY DOCTOR --you should call your primary doctor and schedule an appointment IF YOU DO NOT HAVE A PRIMARY DOCTOR YOU CAN CALL OUR PHYSICIAN REFERRAL HOTLINE AT IF YOU CAN NOT AFFORD TO SEE A PHYSICIAN YOU CAN CHOSE FROM THE FOLLOWING [facility] CLINICS [facility] [address] [facility] [address] [facility] [address] [facility] [address] [facility] [address] [facility] [facility] [address] [facility]. [facility] YOU HAVE RECEIVED A MEDICAL SCREENING EXAM AND THE RESULTS INDICATE THAT YOU DO NOT HAVE A CONDITION THAT REQUIRES URGENT TREATMENT IN THE EMERGENCY DEPARTMENT. FURTHER EVALUATION AND TREATMENT OF YOUR CONDITION CAN WAIT UNTIL YOU ARE SEEN IN YOUR DOCTORS OFFICE WITHIN THE NEXT 1-2 DAYS. IT IS YOUR RESPONSIBILITY TO MAKE AN APPOINTMENT FOR FOLOW-UP CARE. IF YOU HAVE A PRIMARY DOCTOR --you should call your primary doctor and schedule and appointment IF YOU DO NOT HAVE A PRIMARY DOCTOR YOU CAN CALL OUR PHYSICIAN REFERRAL HOTLINE AT . IF YOU CAN NOT AFFORD TO SEE A PHYSICIAN YOU CAN CHOSE FROM THE FOLLOWING [facility] INSTITUTIONS: [facility] [address] [place] [address] [facility] [address] [place] [address] [facility] [address] [place] [address] Additional Instructions: Call your primary care doctor TOMORROW for an appointment during the next 1 WEEK.Tell the private secretary that you were referred from this facility.See the doctor sooner or return here if your condition worsens before your appointment time. MICK RIVERS MD Feb 06, 2019 21:58
[2019-02-06] MEDS ORDERED: INSULIN LISPRO 100 UNIT/ML VIAL SC ONE (22:00)
[2019-02-07] MEDS ORDERED: ACCU-CHEK XX ONE
[2019-02-07 00:14] VITALS: BP 126/71; PULSE 80; RESP 17
[2019-02-07] MEDS ORDERED: INSU100C SQ (00:18)
== END 2019-02-07 00:21 | disposition home or self-care (01) ==
LOC: E/R 19:32
DX: E10.65 Type 1 diabetes mellitus with hyperglycemia (principal); Z79.4 Long term (current) use of insulin
CPT/HCPCS: 36415; 80048; 81003; 82803; 82962; 83735; 83880; 84100; 85025; 96372; J1815; J7030; J7120; Z7502

== ENCOUNTER 2019-03-08 20:33 | Emergency (ER) | payer MEDICAID ==
[~2019-03-08] VITALS: Ht 177.8 cm; Wt 89.4 kg
[2019-03-08 21:30] VITALS: Ht 177.8 cm; Wt 89.4 kg
[2019-03-09] MEDS ORDERED: INSU100C SQ (01:59)
[2019-03-09] MEDS ORDERED: LANT3I SC (01:59)
--- NOTE | 2019-03-09 02:02 | ERD ---
ER Documentation Chief Complaint Chief Complaint HERE FOR LANTUS AND HUMALOG PRESCRIPTION HPI 28-year-old male with insulin-dependent diabetes who presents for medication refill. Patient states he is on humalog and Lantus and is unable to see a PMD for prescription refill secondary to him only having emergency Medi-Jelani at the moment. He otherwise without complaint. ROS All systems reviewed and are negative except as per history of present illness. Medications Home Meds Active Scripts Insulin Glargine* (Lantus*) 100 Unit/Ml Soln, 38 UNIT SC QHS for 90 Days, #1 VIAL Prov:STEFANO LAWSON PA-C 03/09/19 Insulin Lispro (Humalog) 100 Unit/1 Ml Cartridge, 10 UNIT SQ TIDM A for 90 Days, EA Prov:STEFANO LAWSON PA-C 03/09/19 Insulin Lispro (Humalog) 100 Unit/1 Ml Cartridge, 10 UNIT SQ AC A, #1 VIAL Prov:ADELITA GOMES 02/07/19 Insulin Glargine* (Lantus*) 100 Unit/Ml Soln, 38 UNIT SC QHS for 30 Days, VIAL 1 Refill Prov:MICK RIVERS MD 02/06/19 Insulin Lispro (Humalog) 100 Unit/1 Ml Cartridge, 10 UNIT SQ AC A for 30 Days, EA 1 Refill Prov:MICK RIVERS MD 02/06/19 Dextromethorphan Hb-Promethazine Hcl* (Promethazine DM* Syrup) 473 Ml Syrup, 5 ML PO Q6 PRN for COUGH, #4 OZ Prov:ADELITA IBARRA 01/02/19 Amoxicillin/Potassium Clav (Amox-Clav 875-125 mg Tablet) 875-125 mg Tab, 1 TAB PO BID for otitis media for 7 Days, #14 TAB Prov:ADELITA IBARRA 01/02/19 Insulin Lispro (Humalog) 100 Unit/1 Ml Cartridge, 10 UNIT SQ TIDM A for diabetes, #2 EA Prov:OLIVERIO PARKINSON DO 12/01/18 Insulin Glargine* (Lantus*) 100 Unit/Ml Soln, 38 UNIT SC DAILY, #2 VIAL Prov:OLIVERIO PARKINSON DO 12/01/18 Gabapentin* (Gabapentin*) 300 Mg Capsule, 300 MG PO QHS, #30 CAP Prov:GREGOR [place] INDUSTRIAL SEAMSTRESS 11/06/18 Ibuprofen* (Motrin*) 600 Mg Tab, 600 MG PO Q6H PRN for PAIN AND OR ELEVATED TEMP, #30 TAB Prov:GREGOR [place] INDUSTRIAL SEAMSTRESS 11/06/18 Insulin Glargine* (Lantus*) 100 Unit/Ml Soln, 28 UNIT SC DAILY, #1 VIAL Prov:MARTHA MAZA MD 09/30/18 Insulin Lispro (Humalog) 100 Unit/1 Ml Cartridge, 10 UNIT SQ q ac for 30 Days, EA 1 Refill Prov:MARTHA MAZA MD 09/30/18 Insulin Lispro (Humalog) 100 Unit/1 Ml Cartridge, 10 UNIT SQ WITH MEALS for 30 Days, EA Prov:MICK RIVERS MD 08/29/18 Insulin Glargine* (Lantus*) 100 Unit/Ml Soln, 38 UNIT SC QHS for 30 Days, VIAL Prov:MICK RIVERS MD 08/29/18 Hydrocodone/Acetaminophen ([place] 5-325 Tablet) 1 Each Tablet, 1 EACH PO Q6, #15 TAB Prov:PEG JUNIOR PA-C 07/14/18 Tramadol HCl (Tramadol HCl) 50 Mg Tablet, 50 MG PO Q4 PRN for PAIN, #20 TAB Prov:PARESH CHENG PA-C 07/12/18 Docusate Sodium* (Colace*) 100 Mg Capsule, 100 MG PO BID, #30 CAP Prov:PARESH CHENG PA-C 07/12/18 Sulfamethoxazole/Trimethoprim* (Bactrim Ds* Tablet) 1 Each Tablet, 1 TAB PO BID, #20 TAB Prov:PARESH CHENG PA-C 07/12/18 Cephalexin* (Keflex*) 500 Mg Capsule, 500 MG PO Q6, #40 CAP Prov:PARESH CHENG PA-C 07/12/18 Insulin Lispro (Humalog) 100 Unit/1 Ml Cartridge, 10 UNIT SQ AC MEALS for 30 Days, EA Prov:RYAN MORA PA-C 06/05/18 Insulin Glargine* (Lantus*) 100 Unit/Ml Soln, 38 UNIT SC AC BREAKFAST for 30 Days, #1 VIAL Prov:RYAN MORA PA-C 06/05/18 Syrge-Ndl,Ins 0.3 ml Half Rayo (Insulin Syringe) 1 Each Disp.syrin, 1 EACH MC, #30 Prov:PARESH CHENG PA-C 03/06/18 Syring W-Ndl,Disp,Insul,0.5 ml (Easy Comfort Insulin Syringe) 1 Each Disp.syrin, 1 EACH MC, #30 Prov:PARESH CHENG PA-C 03/06/18 Insulin Lispro (Humalog) 100 Unit/1 Ml Cartridge, 100 UNIT SQ BEFORE MEALS for 30 Days, EA Prov:PARESH CHENG PA-C 03/05/18 Insulin Glargine* (Lantus*) 100 Unit/Ml Soln, 38 UNIT SC DAILY, #1 VIAL Prov:PARESH CHENG PA-C 03/05/18 Acetaminophen* (Tylenol*) 325 Mg Tablet, 1 TAB PO Q6 PRN for PAIN AND OR ELEVATED TEMP, #20 TAB Prov:ADAMNAY C 11/23/17 Insulin Glargine,Hum.rec.anlog (Lantus Solostar) 100 Units/Ml Pen, 38 UNIT SC QHS for 30 Days, #1 SYR Prov:NAY MEDINA Toma 11/23/17 Insulin Lispro (Humalog Kwikpen U-100) 100 Unit/1 Ml Insuln.pen, 10 UNIT SQ AC MEALS for 30 Days, EA Prov:NAY MEDINA C 11/23/17 Insulin Glargine* (Lantus*) 100 Unit/Ml Soln, 38 UNIT SC DAILY@08, #1 BOTTLE 4 Refills Prov:SAUNDRA GONZALES S. 07/25/17 Insulin Aspart* (Novolog Insulin Pen*) 100 Unit/Ml Soln, 15 UNIT SC WITH MEALS, #1 BOTTLE 4 Refills Prov:RAGORDON WRIGHTSAUNDRA S. 07/25/17 Fluticasone Propionate* (Fluticasone Propionate* Nasal) 50 Mcg/[place] - 16 Gm [place].susp, 1 SPRAY NASAL BID, #1 BOTTLE Prov:SAUNDRA GONZALES 07/25/17 Allergies Allergies: Coded Allergies: No Known Allergy (Unverified , 09/30/18) PMhx/Soc Anesthesia Reaction: No Hx Neurological Disorder: No Hx Respiratory Disorders: No Hx Cardiac Disorders: No Hx Psychiatric Problems: No Hx Miscellaneous Medical Probl: Yes (Type 1 diabetes) Hx Alcohol Use: No Hx Substance Use: No Hx Tobacco Use: Yes Smoking Status: Former smoker FmHx Family History: No diabetes, No coronary disease, No other Physical Exam Vitals Vital Signs Date Temp Pulse Resp B/P (MAP) Pulse Ox O2 O2 Flow FiO2 Time Delivery Rate 03/08/19 100.0 110 19 140/96 97 21:30 (111) Physical Exam Deferred Results 24 hrs Laboratory Tests Test 03/08/19 21:29 Bedside Glucose 81 mg/dL Procedures/MDM 28-year-old male with insulin-dependent diabetes who presents for prescription refill. 90-day supply of Humalog and Lantus provided to patient. Patient is instructed to establish care with her PMD as soon as he can work out his insurance issues. He currently only has emergency Medi-Jelani. Departure Diagnosis: Primary Impression: Encounter for medication refill Condition: Stable Referrals: [facility] YOU HAVE RECEIVED A MEDICAL SCREENING EXAM AND THE RESULTS INDICATE THAT YOU DO NOT HAVE A CONDITION THAT REQUIRES URGENT TREATMENT IN THE EMERGENCY DEPARTMENT. FURTHER EVALUATION AND TREATMENT OF YOUR CONDITION CAN WAIT UNTIL YOU ARE SEEN IN YOUR DOCTORS OFFICE WITHIN THE NEXT 1-2 DAYS. IT IS YOUR RESPONSIBILITY TO MAKE AN APPOINTMENT FOR FOLOW-UP CARE. IF YOU HAVE A PRIMARY DOCTOR --you should call your primary doctor and schedule an appointment IF YOU DO NOT HAVE A PRIMARY DOCTOR YOU CAN CALL OUR PHYSICIAN REFERRAL HOTLINE AT IF YOU CAN NOT AFFORD TO SEE A PHYSICIAN YOU CAN CHOSE FROM THE FOLLOWING [facility] CLINICS [facility] [address] [place]. [facility] [address] [facility]. [facility] [address] [facility] [address] [facility] [address] [facility]. [facility] [address] Additional Instructions: Call your primary care doctor TOMORROW for an appointment during the next 2-3 days.See the doctor sooner or return here if your condition worsens before your appointment time. STEFANO LAWSON PA-C March 09, 2019 02:02
[2019-03-09 02:08] VITALS: BP 134/67; PULSE 90; RESP 19
== END 2019-03-09 02:10 | disposition home or self-care (01) ==
LOC: FTE 20:33
DX: Z76.0 Encounter for issue of repeat prescription (principal); E10.9 Type 1 diabetes mellitus without complications; Z79.4 Long term (current) use of insulin; Z87.891 Personal history of nicotine dependence
CPT/HCPCS: 82962; Z7502; 99281

== ENCOUNTER → 2019-06-10 | Emergency (ER) | payer MEDICAID ==
[~2019-06-10] VITALS: Ht 177.8 cm; Wt 82.3 kg
[2019-06-10 00:43] VITALS: BP 121/65; PULSE 89; RESP 21; Ht 177.8 cm; Wt 82.3 kg
--- NOTE | 2019-06-10 02:57 | ERD ---
ER Documentation Chief Complaint Chief Complaint STATES FINISHED INSULIN TODAY, HERE FOR REFILL HPI 28-year-old male presented to ED for medication refill. Patient denies any pain denies any discomfort. He states that he needs a refill for his diabetes medication. Patient states that he has to go to the ER to get refills because his insurance only covers emergency visits. The patient does not have a primary care provider at this time. The patient denies any allergies to medication and states that he currently takes Lantus and Humalog to control his diabetes. Brian allen denies any allergies to medications and states that he has to come here every 3 months to get a refill. ROS All systems reviewed and are negative except as per history of present illness. Medications Home Meds Active Scripts Insulin Lispro (Humalog) 100 Unit/1 Ml Cartridge, 10 UNIT SQ AC A for 30 Days, EA 3 Refills Prov:ELIAS FARR PA-C 06/10/19 Insulin Glargine* (Lantus*) 100 Unit/Ml Soln, 38 UNIT SC QHS, #1 VIAL 3 Refills 38 units SC daily Prov:ELIAS FARR PA-C 06/10/19 Insulin Glargine* (Lantus*) 100 Unit/Ml Soln, 38 UNIT SC QHS for 90 Days, #1 VIAL Prov:STEFANO LAWSON PA-C 03/09/19 Insulin Lispro (Humalog) 100 Unit/1 Ml Cartridge, 10 UNIT SQ TIDM A for 90 Days, EA Prov:STEFANO LAWSON PA-C 03/09/19 Insulin Lispro (Humalog) 100 Unit/1 Ml Cartridge, 10 UNIT SQ AC A, #1 VIAL Prov:ADELITA GOMES 02/07/19 Insulin Glargine* (Lantus*) 100 Unit/Ml Soln, 38 UNIT SC QHS for 30 Days, VIAL 1 Refill Prov:MICK RIVERS MD 02/06/19 Insulin Lispro (Humalog) 100 Unit/1 Ml Cartridge, 10 UNIT SQ AC A for 30 Days, EA 1 Refill Prov:MICK RIVERS MD 02/06/19 Dextromethorphan Hb-Promethazine Hcl* (Promethazine DM* Syrup) 473 Ml Syrup, 5 ML PO Q6 PRN for COUGH, #4 OZ Prov:ADELITA IBARRA 01/02/19 Amoxicillin/Potassium Clav (Amox-Clav 875-125 mg Tablet) 875-125 mg Tab, 1 TAB PO BID for otitis media for 7 Days, #14 TAB Prov:ADELITA IBARRA 01/02/19 Insulin Lispro (Humalog) 100 Unit/1 Ml Cartridge, 10 UNIT SQ TIDM A for diabetes, #2 EA Prov:OLIVERIO PARKINSON 12/01/18 Insulin Glargine* (Lantus*) 100 Unit/Ml Soln, 38 UNIT SC DAILY, #2 VIAL Prov:OLIVERIO PARKINSON DO 12/01/18 Gabapentin* (Gabapentin*) 300 Mg Capsule, 300 MG PO QHS, #30 CAP Prov:GREGOR SHEFFIELD NP 11/06/18 Ibuprofen* (Motrin*) 600 Mg Tab, 600 MG PO Q6H PRN for PAIN AND OR ELEVATED TEMP, #30 TAB Prov:GREGOR SHEFFIELD NP 11/06/18 Insulin Glargine* (Lantus*) 100 Unit/Ml Soln, 28 UNIT SC DAILY, #1 VIAL Prov:MARTHA MAZA MD 09/30/18 Insulin Lispro (Humalog) 100 Unit/1 Ml Cartridge, 10 UNIT SQ q ac for 30 Days, EA 1 Refill Prov:MARTHA MAZA MD 09/30/18 Insulin Lispro (Humalog) 100 Unit/1 Ml Cartridge, 10 UNIT SQ WITH MEALS for 30 Days, EA Prov:MICK RIVERS MD 08/29/18 Insulin Glargine* (Lantus*) 100 Unit/Ml Soln, 38 UNIT SC QHS for 30 Days, VIAL Prov:MICK RIVERS MD 08/29/18 Hydrocodone/Acetaminophen ([place] 5-325 Tablet) 1 Each Tablet, 1 EACH PO Q6, #15 TAB Prov:PEG JUNIOR PA-C 07/14/18 Tramadol HCl (Tramadol HCl) 50 Mg Tablet, 50 MG PO Q4 PRN for PAIN, #20 TAB Prov:PARESH CHENG PA-C 07/12/18 Docusate Sodium* (Colace*) 100 Mg Capsule, 100 MG PO BID, #30 CAP Prov:PARESH CHENG-C 07/12/18 Sulfamethoxazole/Trimethoprim* (Bactrim Ds* Tablet) 1 Each Tablet, 1 TAB PO BID, #20 TAB Prov:PARESH CHENG PA-C 07/12/18 Cephalexin* (Keflex*) 500 Mg Capsule, 500 MG PO Q6, #40 CAP Prov:PARESH CHENG-C 07/12/18 Insulin Lispro (Humalog) 100 Unit/1 Ml Cartridge, 10 UNIT SQ AC MEALS for 30 Days, EA Prov:ABBYRYAN GIMENEZ-C 06/05/18 Insulin Glargine* (Lantus*) 100 Unit/Ml Soln, 38 UNIT SC AC BREAKFAST for 30 Days, #1 VIAL Prov:RYAN MORA-C 06/05/18 Syrge-Ndl,Ins 0.3 ml Half Rayo (Insulin Syringe) 1 Each Disp.syrin, 1 EACH , #30 Prov:PARESH CHENG-C 03/06/18 Syring W-Ndl,Disp,Insul,0.5 ml (Easy Comfort Insulin Syringe) 1 Each Disp.syrin, 1 EACH MC, #30 Prov:PARESH CHENG-C 03/06/18 Insulin Lispro (Humalog) 100 Unit/1 Ml Cartridge, 100 UNIT SQ BEFORE MEALS for 30 Days, EA Prov:PARESH CHENG-C 03/05/18 Insulin Glargine* (Lantus*) 100 Unit/Ml Soln, 38 UNIT SC DAILY, #1 VIAL Prov:PARESH CHENG PA-C 03/05/18 Acetaminophen* (Tylenol*) 325 Mg Tablet, 1 TAB PO Q6 PRN for PAIN AND OR ELEVATED TEMP, #20 TAB Prov:NAY MEDINA 11/23/17 Insulin Glargine,Hum.rec.anlog (Lantus Solostar) 100 Units/Ml Pen, 38 UNIT SC QHS for 30 Days, #1 SYR Prov:NAY MEDINA 11/23/17 Insulin Lispro (Humalog Kwikpen U-100) 100 Unit/1 Ml Insuln.pen, 10 UNIT SQ AC MEALS for 30 Days, EA Prov:NAY MEDINA 11/23/17 Insulin Glargine* (Lantus*) 100 Unit/Ml Soln, 38 UNIT SC DAILY@08, #1 BOTTLE 4 Refills Prov:AUNG GONZALESP S. 07/25/17 Insulin Aspart* (Novolog Insulin Pen*) 100 Unit/Ml Soln, 15 UNIT SC WITH MEALS, #1 BOTTLE 4 Refills Prov:AUNG GONZALESP S. 07/25/17 Fluticasone Propionate* (Fluticasone Propionate* Nasal) 50 Mcg/[place] - 16 Gm [place].susp, 1 SPRAY NASAL BID, #1 BOTTLE Prov:SAUNDRA GONZALES S. 07/25/17 Allergies Allergies: Coded Allergies: No Known Allergy (Unverified , 09/30/18) PMhx/Soc Anesthesia Reaction: No Hx Neurological Disorder: No Hx Respiratory Disorders: No Hx Cardiac Disorders: No Hx Psychiatric Problems: No Hx Miscellaneous Medical Probl: Yes (Type 1 diabetes) Hx Alcohol Use: No Hx Substance Use: No Hx Tobacco Use: Yes Smoking Status: Current every day smoker FmHx Family History: No diabetes, No coronary disease, No other Physical Exam Vitals Vital Signs Date Temp Pulse Resp B/P (MAP) Pulse Ox O2 O2 Flow FiO2 Time Delivery Rate 06/10/19 97.5 89 21 121/65 97 00:43 (83) Physical Exam GENERAL: The patient is well-appearing, well-nourished, in no acute distress HEART: Regular rate and rhythm. No murmurs, clicks, rubs or gallops. Lungs: Clear bilateral to auscultation ABDOMEN:Soft, nontender and nondistended. Good bowel sounds. No rebound or guarding. No gross peritonitis. No gross organomegaly or masses. No Elkins sign or McBurney point tenderness. Procedures/MDM ED course: The patient was stable throughout the ED course. The patient and/or family informed of laboratory and diagnostic imaging results throughout the ED course. Medical decision makin-year-old male presented to ED for medication refill. Patient denies any pain is presenting with vitals within normal limit. Patient states that due to insurance reasons he has come to the ER to get medication refills. Patient states he takes Lantus 38 units once a day and Humalog 10 units 3 times a day. Patient has no allergies to medications. Advised the patient on safe use of this medication. Advised the patient that he needs to be monitoring his sugars at home and counting carbs prior to giving himself his medication. Patient appears very knowledgeable with his condition and states he has been managing his diabetes for several years now. Patient has never been hospitalized for DKA and has never been hospitalized for hypoglycemia. At this time I feel safe refilling the patient's prescriptions. Advised the patient that if he has any questions or concerns or has any symptoms secondary to medication to return to ED immediately. Patient is agreement treatment plan and all questions were answered upon discharge Prescription for home: Humalog Lantus I have discussed with the patient proper use and common side effects to expert with the medication . I advised the patient/family to speak with the pharmacist dispensing the medication to be advised of any potential drug interactions with other medication or supplements they may be taking. Discharge: At this time, patient is stable for discharge and outpatient management. I have instructed the patient to follow-up with his\her primary care physician in 1 to 2 days. I have discussed with the patient the possibility of needing to see a specialist for further work-up and imaging studies if symptoms persist. I have instructed the patient to promptly return to the ER for any new or worsening symptoms including increased pain, fever, nausea, vomiting, weakness or LOC. The patient and\or family expressed understanding of and agreement with this plan. All questions were answered. Home care instructions were provided. Disclaimer: Inadvertent spelling and grammatical errors are likely due to EHR\dictation software use and do not reflect on the overall quality of patient care. Also, please note that the electronic time recorded on the note does not necessarily reflect the actual time of the patient encounter. Departure Diagnosis: Primary Impression: Encounter for medication refill Condition: Stable Patient Instructions: Taking Medicine Safely Referrals: COMMUNITY CLINICS YOU HAVE RECEIVED A MEDICAL SCREENING EXAM AND THE RESULTS INDICATE THAT YOU DO NOT HAVE A CONDITION THAT REQUIRES URGENT TREATMENT IN THE EMERGENCY DEPARTMENT. FURTHER EVALUATION AND TREATMENT OF YOUR CONDITION CAN WAIT UNTIL YOU ARE SEEN IN YOUR DOCTORS OFFICE WITHIN THE NEXT 1-2 DAYS. IT IS YOUR RESPONSIBILITY TO MAKE AN APPOINTMENT FOR FOLOW-UP CARE. IF YOU HAVE A PRIMARY DOCTOR --you should call your primary doctor and schedule an appointment IF YOU DO NOT HAVE A PRIMARY DOCTOR YOU CAN CALL OUR PHYSICIAN REFERRAL HOTLINE AT IF YOU CAN NOT AFFORD TO SEE A PHYSICIAN YOU CAN CHOSE FROM THE FOLLOWING [facility] [address] [facility] [address] [facility] [address] [facility] [address] [facility] [address] [facility] [facility] [address] [facility] [facility] YOU HAVE RECEIVED A MEDICAL SCREENING EXAM AND THE RESULTS INDICATE THAT YOU DO NOT HAVE A CONDITION THAT REQUIRES URGENT TREATMENT IN THE EMERGENCY DEPARTMENT. FURTHER EVALUATION AND TREATMENT OF YOUR CONDITION CAN WAIT UNTIL YOU ARE SEEN IN YOUR DOCTORS OFFICE WITHIN THE NEXT 1-2 DAYS. IT IS YOUR RESPONSIBILITY TO MAKE AN APPOINTMENT FOR FOLOW-UP CARE. IF YOU HAVE A PRIMARY DOCTOR --you should call your primary doctor and schedule and appointment IF YOU DO NOT HAVE A PRIMARY DOCTOR YOU CAN CALL OUR PHYSICIAN REFERRAL HOTLINE AT . IF YOU CAN NOT AFFORD TO SEE A PHYSICIAN YOU CAN CHOSE FROM THE FOLLOWING [facility] INSTITUTIONS: [facility] [address] [place] [address] [facility] [address] [place] [address] [facility] [address] [place] [address] Additional Instructions: FOLLOW UP WITH YOUR PRIMARY CARE PHYSICIAN TOMORROW.Return to this facility if you are not improving as expected. ELIAS FARR PA-C Jun 10, 2019 02:57
== END | disposition home or self-care (01) ==
LOC: FTE 00:42
DX: Z76.0 Encounter for issue of repeat prescription (principal); E10.9 Type 1 diabetes mellitus without complications; F17.210 Nicotine dependence, cigarettes, uncomplicated; Z79.4 Long term (current) use of insulin
CPT/HCPCS: 99281

== ENCOUNTER 2019-06-12 10:08 | Inpatient (IN) | payer MEDICAID ==
[~2019-06-12] VITALS: Ht 172.7 cm; Wt 78.3 kg
[2019-06-12 10:12] VITALS: Ht 172.7 cm; Wt 78.3 kg
[2019-06-12] MEDS ORDERED: ONDANSETRON 4 MG INJ IV STA (10:31)
[2019-06-12] MEDS ORDERED: SOD CHLORIDE 0.9% 1,000 ML IV ONE (11:00)
[2019-06-12] MEDS ORDERED: METOCLOPRAMIDE 10 MG INJ IV ONE (11:00)
[2019-06-12] MEDS ORDERED: SOD CHLORIDE 0.9% 500 ML IV ONE (11:30)
[2019-06-12] MEDS ORDERED: SOD CHLORIDE 0.9% 1,000 ML IV SCH ×2 (12:01→13:50)
[2019-06-12] MEDS ORDERED: D10/0.45% NACL + KCL 30 MEQ 1,000 ML IV SCH (12:01)
[2019-06-12] MEDS ORDERED: D10/0.45% NACL + KCL 40 MEQ 1,000 ML IV SCH ×2 (12:01→13:50)
[2019-06-12] MEDS ORDERED: NS + KCL 30 MEQ 1,000 ML IV SCH ×2 (12:01→13:50)
[2019-06-12] MEDS ORDERED: NS + KCL 40 MEQ 1,000 ML IV SCH ×2 (12:01→13:50)
[2019-06-12] MEDS ORDERED: DEXTROSE 10%/0.45% NACL 1,000 ML IV SCH ×2 (12:01→13:50)
[2019-06-12] MEDS ORDERED: INSULIN REGULAR, HUMAN 100 UNIT in SOD CHLORIDE 0.9% 100 ML IV SCH ×4 (12:30→14:00)
[2019-06-12] MEDS ORDERED: LACTATED RINGER'S 780 ML IV ONE (12:30)
[2019-06-12] MEDS ORDERED: DEXTROSE 50% 50 ML SYRINGE IV PRN ×4 (12:30→14:00)
[2019-06-12] MEDS: ACCU-CHEK XX SCH ×11 (14:00→23:34)
[2019-06-12] MEDS ORDERED: POTASSIUM CHLORIDE 50 ML IVPB PRN (14:00)
[2019-06-12] MEDS: D10/0.45% NACL + KCL 30 MEQ 1,000 ML IV SCH ×2 (17:43→22:51)
[2019-06-12 21:40] VITALS: BP 119/74; PULSE 86; RESP 17
[2019-06-12 22:00] VITALS: BP 122/79; PULSE 98; RESP 18
[2019-06-12] MEDS ORDERED: INSULIN GLARGINE [LANTus] (100 UNITS/ML) SYG SC ONE (22:30)
[2019-06-12 23:00] VITALS: BP 123/71; PULSE 87
[2019-06-13] VITALS (13 sets, daily range): BP systolic 93–135; BP diastolic 38–79; PULSE 58–89; RESP 14–18
[2019-06-13] MEDS: ACCU-CHEK XX SCH ×4 (01:00→12:00)
[2019-06-13] MEDS: SOD CHLORIDE 0.9% 1,000 ML IV SCH ×2 (02:30→12:30)
[2019-06-13] MEDS: INSULIN ASPART [NOVOLOG] 3 ML PEN SC SCH ×2 (08:23→12:34)
[2019-06-13] MEDS: INSULIN REGULAR, HUMAN 100 UNIT/1 ML 3ML VIAL SC SCH ×2 (08:24→12:36)
[2019-06-13] MEDS ORDERED: CEPASTAT LOZENGE MT PRN (09:30)
== END 2019-06-13 13:30 | disposition home or self-care (01) | DRG 638 ==
LOC: FTE 10:08 → ICU 13:40 → SUATTDRO 13:50
PROVIDERS: ADMIT Internal Medicine; ATTEND Internal Medicine
DX: E11.10 Type 2 diabetes mellitus with ketoacidosis without coma (principal); E87.2 Acidosis; Z79.4 Long term (current) use of insulin
CPT/HCPCS: 36415; 71045; 80048; 80053; 81001; 81003; 82803; 82962; 83036; 83690; 83735; 84100; 85025; 96361; 96374; 96375; J1815; J2405; J2765; J3480; J7030; J7040; J7120